=== PATIENT | male | born 1965 | race Two or more races ===

== ENCOUNTER 2019-02-23 14:51 | Emergency (ER) | payer SELFPAY ==
[~2019-02-23] VITALS: Ht 170.2 cm; Wt 63.5 kg
[2019-02-23] MEDS ORDERED: IV NS 0.9% 1,000 ML BAG IV ONE (15:30)
[2019-02-23 15:39] LABS: BASOPHILS % (AUTO) 1.8 % (0.0-2.0); EOSINOPHILS % (AUTO) 5.1 % (0.0-6.0); HEMATOCRIT 40 % (39-51); LYMPHOCYTES # (AUTO) 0.9 /CMM (0.8-4.8); LYMPHOCYTES % (AUTO) 33.1 % (20.0-44.0); MEAN CORPUSCULAR HGB CONC 33 g/dl (31.0-36.0); MEAN CORPUSCULAR VOLUME 80 fL (80-96); MONOCYTES # (AUTO) 0.4 /CMM (0.1-1.30); MONOCYTES % (AUTO) 14.5 % (2.0-12.0); NEUTROPHILS # (AUTO) 1.2 /CMM (1.8-8.9); NEUTROPHILS % (AUTO) 45.5 % (43.0-81.0); PLATELET COUNT (AUTO) 550 /CMM (150-450); RED BLOOD CELL COUNT(AUTO) 4.93 MIL/uL (4.5-6.0); WHITE BLOOD COUNT (AUTO) 2.6 K/uL (4.3-11.0)
--- NOTE | 2019-02-23 15:40 | NUR ---
patient presented to the ER c/o abd pain. On room air, ambulatory, breathing evenly and unlabored. Connected to the monitor and pulse ox. Kept comfortable, will continue to monitor accordingly.
--- NOTE | 2019-02-23 15:41 | NUR ---
urine collected and sent to lab.
[2019-02-23 15:50] LABS: CREATININE 0.8 mg/dL (0.6-1.3)
[2019-02-23 15:55] LABS: ALBUMIN 3.1 g/dL (3.4-5.0); BILIRUBIN,DIRECT 0.1 mg/dL (0.0-0.2); BILIRUBIN,TOTAL 0.4 mg/dL (0.2-1.0); TOTAL PROTEIN, SERUM 7.9 g/dL (6.4-8.2)
[2019-02-23] MEDS ORDERED: CT SWABBABLE VALVE TRANS SET 1 EA INFUS.SET MC ONE (15:59)
[2019-02-23 16:06] LABS: APPEARANCE,URINE Clear (CLEAR); BILIRUBIN,URINE Negative (NEGATIVE); BLOOD, URINE Negative Ery/uL (NEGATIVE); COLOR,URINE Yellow (YELLOW); KETONES,URINE Negative (NEGATIVE); LEUKOCYTE ESTERASE ,URINE Negative (NEGATIVE); NITRITE, URINE Negative (NEGATIVE); PROTEIN,URINE Negative (NEGATIVE); UGLUCOSE Negative (NEGATIVE); UROBILINOGEN,URINE 0.2 EU/dL (0.2)
--- NOTE | 2019-02-23 17:36 | NUR ---
Patient discharged to home in stable condition. Written and verbal after care instructions given. Patient verbalizes understanding of instruction.IV removed. Catheter intact and site benign. Pressure and 4x4 applied to site. No bleeding noted.
[2019-02-23 17:37] VITALS: BP 121/76
[2019-03-15] MEDS ORDERED: IPRA0.2S9 NEB (10:32)
[2019-03-15] MEDS ORDERED: methylPREDNISolone SOD SUCC IV (10:32)
[2019-03-15] MEDS ORDERED: ALBUT2 NEB (10:32)
[2019-03-15] MEDS ORDERED: PANT40TA2 PO (10:32)
[2019-03-20] MEDS ORDERED: PRED5TAB48 PO (16:12)
[2019-03-22] MEDS ORDERED: APIX5TAB PO (10:43)
== END 2019-02-23 17:39 | disposition home or self-care (01) ==
LOC: ER 14:53
DX: R10.84 Generalized abdominal pain (principal)
CPT/HCPCS: 36415; 71045; 74177; 80048; 80076; 81001; 83690; 85025; 85730; 96360; 99284; J7030; 81000-TC

== ENCOUNTER 2019-02-27 08:46 | Inpatient (IN) | payer MEDICAID ==
[~2019-02-27] VITALS: Ht 170.2 cm; Wt 63.0 kg
[2019-02-27 09:15] LABS: BASOPHILS % (AUTO) 1.6 % (0.0-2.0); EOSINOPHILS % (AUTO) 3.3 % (0.0-6.0); HEMATOCRIT 38 % (39-51); HEMOGLOBIN 12.6 g/dL (13.5-17.5); LYMPHOCYTES # (AUTO) 0.7 /CMM (0.8-4.8); LYMPHOCYTES % (AUTO) 25.1 % (20.0-44.0); MEAN CORPUSCULAR HGB CONC 33 g/dl (31.0-36.0); MEAN CORPUSCULAR VOLUME 80 fL (80-96); MONOCYTES # (AUTO) 0.6 /CMM (0.1-1.30); MONOCYTES % (AUTO) 20.5 % (2.0-12.0); NEUTROPHILS # (AUTO) 1.3 /CMM (1.8-8.9); NEUTROPHILS % (AUTO) 49.5 % (43.0-81.0); PLATELET COUNT (AUTO) 587 /CMM (150-450); RED BLOOD CELL COUNT(AUTO) 4.76 MIL/uL (4.5-6.0); WHITE BLOOD COUNT (AUTO) 2.7 K/uL (4.3-11.0)
[2019-02-27 09:24] LABS: CALCIUM, SERUM 8.8 mg/dL (8.5-10.1); CARBON DIOXIDE 32 mmol/L (21-32); CHLORIDE 94 mmol/L (98-107); CREATININE 0.9 mg/dL (0.6-1.3); GLUCOSE 90 mg/dL (74-106); POTASSIUM 3.6 mmol/L (3.5-5.1); SODIUM SERUM 132 mmol/L (136-145); UREA NITROGEN, BLOOD 7 mg/dL (7-18)
[2019-02-27] MEDS ORDERED: IV NS 0.9% 1,000 ML BAG IV ONE (09:30)
[2019-02-27 09:32] LABS: BAND % (MANUAL) 6 % (0.0-5.0); EOSINOPHILS % (MANUAL) 3 % (0-4); LYMPHOCYTES % (MANUAL) 31 % (16-48); MONOCYTES % (MANUAL) 16 % (0-11.0); NEUTROPHILS % (MANUAL) 44 (42-76)
[2019-02-27] MEDS ORDERED: IV NS 0.9% 250 ML IV ONE (09:58)
[2019-02-27] MEDS ORDERED: IOHEXOL-350 100 ML VIAL IV ONE (09:59)
[2019-02-27] MEDS ORDERED: CT SWABBABLE VALVE TRANS SET 1 EA INFUS.SET MC ONE (09:59)
[2019-02-27] MEDS ORDERED: HYDR-4384 PO (11:49)
[2019-02-27] MEDS ORDERED: LORAZEPAM INJ 2 MG/ML VIAL IV ONE (12:00)
[2019-02-27] MEDS ORDERED: LORAZEPAM INJ 2 MG/ML VIAL ONE (12:01)
[2019-02-27] MEDS ORDERED: HYDROCODONE/APAP 5/325MG 1 EACH TABLET PO PRN (13:30)
[2019-02-27] MEDS ORDERED: MAGNESIUM HYDROXIDE 30 ML UDC PO PRN (13:30)
[2019-02-27] MEDS ORDERED: ACETAMINOPHEN 325 MG TABLET PO PRN (13:30)
[2019-02-27] MEDS ORDERED: Z GUARD REMEDY 2 OZ OINT TP PRN (13:30)
[2019-02-27] MEDS ORDERED: ONDANSETRON HCL/PF 4 MG/2 ML VIAL IVP PRN (13:30)
[2019-02-27 14:30] VITALS: BP 97/69
[2019-02-27 16:00] VITALS: BP 109/74
[2019-02-27 20:00] VITALS: BP 96/66
[2019-02-27] MEDS: MAG HYDROX/AL HYDROX/SIMETH 30 ML UDC PO PRN (21:53)
[2019-02-28] VITALS: BP 102/70
[2019-02-28] MEDS: CHOLESTYRAMINE/ASPARTAME 4 G/PKT PACKET PO SCH ×4 (00:09→17:08)
[2019-02-28 05:56] VITALS: BP 93/71
[2019-02-28 07:23] LABS: BASOPHILS # (AUTO) 0.1 /CMM (0.0-0.2); BASOPHILS % (AUTO) 1.3 % (0.0-2.0); EOSINOPHILS % (AUTO) 2.2 % (0.0-6.0); HEMATOCRIT 37 % (39-51); HEMOGLOBIN 12.2 g/dL (13.5-17.5); LYMPHOCYTES # (AUTO) 0.7 /CMM (0.8-4.8); LYMPHOCYTES % (AUTO) 17.2 % (20.0-44.0); MEAN CORPUSCULAR HGB CONC 33 g/dl (31.0-36.0); MEAN CORPUSCULAR VOLUME 80 fL (80-96); MONOCYTES # (AUTO) 0.5 /CMM (0.1-1.30); NEUTROPHILS # (AUTO) 2.7 /CMM (1.8-8.9); NEUTROPHILS % (AUTO) 66.3 % (43.0-81.0); PLATELET COUNT (AUTO) 592 /CMM (150-450); RED BLOOD CELL COUNT(AUTO) 4.61 MIL/uL (4.5-6.0); WHITE BLOOD COUNT (AUTO) 4.1 K/uL (4.3-11.0)
[2019-02-28 07:26] LABS: CALCIUM, SERUM 8.7 mg/dL (8.5-10.1); CREATININE 0.7 mg/dL (0.6-1.3); PHOSPHORUS 2.2 mg/dL (2.5-4.9); POTASSIUM 3.7 mmol/L (3.5-5.1)
[2019-02-28 08:00] VITALS: BP 98/68
[2019-02-28] MEDS: PROCHLORPERAZINE MALEATE 10 MG TABLET PO PRN (11:00)
[2019-02-28] MEDS ORDERED: NEUTRA PHOS 1 POWD.PACKET NG ONE (11:30)
[2019-02-28 16:00] VITALS: BP 110/61
[2019-02-28 19:53] VITALS: BP 109/70
[2019-02-28] MEDS: ZOLPIDEM TARTRATE 5 MG TABLET PO PRN (20:24)
[2019-03-01 06:30] LABS: BASOPHILS # (AUTO) 0.1 /CMM (0.0-0.2); BASOPHILS % (AUTO) 1.2 % (0.0-2.0); EOSINOPHILS % (AUTO) 3.3 % (0.0-6.0); HEMATOCRIT 36 % (39-51); LYMPHOCYTES # (AUTO) 0.9 /CMM (0.8-4.8); LYMPHOCYTES % (AUTO) 15.6 % (20.0-44.0); MEAN CORPUSCULAR HGB CONC 34 g/dl (31.0-36.0); MEAN CORPUSCULAR VOLUME 80 fL (80-96); MONOCYTES # (AUTO) 0.6 /CMM (0.1-1.30); MONOCYTES % (AUTO) 10.8 % (2.0-12.0); NEUTROPHILS # (AUTO) 3.9 /CMM (1.8-8.9); NEUTROPHILS % (AUTO) 69.1 % (43.0-81.0); PLATELET COUNT (AUTO) 636 /CMM (150-450); RED BLOOD CELL COUNT(AUTO) 4.48 MIL/uL (4.5-6.0); WHITE BLOOD COUNT (AUTO) 5.6 K/uL (4.3-11.0)
[2019-03-01 06:42] LABS: CALCIUM, SERUM 8.5 mg/dL (8.5-10.1); CREATININE 0.8 mg/dL (0.6-1.3); POTASSIUM 3.7 mmol/L (3.5-5.1)
[2019-03-01 08:00] VITALS: BP 92/67
[2019-03-01] MEDS: CHOLESTYRAMINE/ASPARTAME 4 G/PKT PACKET PO SCH ×3 (08:11→17:00)
[2019-03-01] MEDS: PROCHLORPERAZINE MALEATE 10 MG TABLET PO PRN (14:56)
[2019-03-01 16:00] VITALS: BP 108/69
[2019-03-01] MEDS: MENTHOL/CETYLPYRD (CEPACOL) 1 LOZ LOZENGE PO PRN (17:53)
[2019-03-01 18:30] VITALS: BP 110/78
[2019-03-01] MEDS ORDERED: DEXAMETHASONE SOD PHOSPHATE 10 MG/ML VIAL IV ONE (19:30)
[2019-03-01] MEDS ORDERED: IPRATROPIUM NEB FS 0.5 MG/2.5 ML AMPUL.NEB NEB PRN (19:30)
[2019-03-01] MEDS ORDERED: ALBUTEROL FS 2.5 MG/0.5 ML VIAL.NEB NEB PRN (19:30)
[2019-03-02] MEDS: IV D5/ 0.9% NACL 1,000 ML IV PRN ×2 (01:34→14:46)
[2019-03-02 07:27] LABS: BASOPHILS % (AUTO) 0.1 % (0.0-2.0); EOSINOPHILS % (AUTO) 0.2 % (0.0-6.0); HEMATOCRIT 35 % (39-51); HEMOGLOBIN 11.5 g/dL (13.5-17.5); LYMPHOCYTES # (AUTO) 0.4 /CMM (0.8-4.8); LYMPHOCYTES % (AUTO) 5.9 % (20.0-44.0); MEAN CORPUSCULAR HGB CONC 33 g/dl (31.0-36.0); MEAN CORPUSCULAR VOLUME 80 fL (80-96); MONOCYTES # (AUTO) 0.1 /CMM (0.1-1.30); MONOCYTES % (AUTO) 1.4 % (2.0-12.0); NEUTROPHILS # (AUTO) 6.9 /CMM (1.8-8.9); NEUTROPHILS % (AUTO) 92.4 % (43.0-81.0); PLATELET COUNT (AUTO) 686 /CMM (150-450); RED BLOOD CELL COUNT(AUTO) 4.35 MIL/uL (4.5-6.0); WHITE BLOOD COUNT (AUTO) 7.4 K/uL (4.3-11.0)
[2019-03-02 07:40] LABS: CALCIUM, SERUM 8.6 mg/dL (8.5-10.1); CREATININE 0.8 mg/dL (0.6-1.3); POTASSIUM 4.2 mmol/L (3.5-5.1)
[2019-03-02 07:52] LABS: ALBUMIN 2.2 g/dL (3.4-5.0); BILIRUBIN,DIRECT 0.1 mg/dL (0.0-0.2); BILIRUBIN,TOTAL 0.2 mg/dL (0.2-1.0); TOTAL PROTEIN, SERUM 6.7 g/dL (6.4-8.2)
[2019-03-02 08:00] VITALS: BP 80/54
[2019-03-02 08:03] LABS: THYROID STIMULATING HORMONE 0.294 uIU/mL (0.358-3.74)
[2019-03-02 08:14] LABS: BAND % (MANUAL) 7 % (0.0-5.0); EOSINOPHILS % (MANUAL) 2 % (0-4); LYMPHOCYTES % (MANUAL) 5 % (16-48); NEUTROPHILS % (MANUAL) 86 (42-76)
[2019-03-02] MEDS: CHOLESTYRAMINE/ASPARTAME 4 G/PKT PACKET PO SCH ×3 (09:00→18:44)
[2019-03-02 10:00] VITALS: BP 90/60
[2019-03-02] MEDS ORDERED: FENTANYL PF 250MCG/5ML AMPUL IV ONE (10:00)
[2019-03-02] MEDS ORDERED: NALOXONE PREFILLED SYRINGE 2 MG/2 ML SYRINGE IV ONE (10:00)
[2019-03-02] MEDS ORDERED: MIDAZOLAM HCL 5MG/ML VIAL 25 MG/5 ML VIAL IV ONE (10:00)
[2019-03-02] MEDS: PROCHLORPERAZINE MALEATE 10 MG TABLET PO PRN (14:16)
[2019-03-02 15:28] VITALS: BP 119/78
[2019-03-02 16:00] VITALS: BP 119/78
[2019-03-02] MEDS: MAG HYDROX/AL HYDROX/SIMETH 30 ML UDC PO PRN (19:11)
[2019-03-02 20:00] VITALS: BP_SYST 103; BP_SYST 133; BP_DIAS 70; BP_DIAS 80
[2019-03-02] MEDS: MENTHOL/CETYLPYRD (CEPACOL) 1 LOZ LOZENGE PO PRN (20:33)
[2019-03-02] MEDS: ZOLPIDEM TARTRATE 5 MG TABLET PO PRN (21:37)
[2019-03-03] MEDS: IV D5/ 0.9% NACL 1,000 ML IV PRN (04:09)
[2019-03-03] MEDS: CHOLESTYRAMINE/ASPARTAME 4 G/PKT PACKET PO SCH ×3 (08:55→18:32)
[2019-03-03] MEDS ORDERED: MAGNESIUM CITRATE 296 ML BOTTLE PO ONE (17:30)
[2019-03-03] MEDS ORDERED: PEG 3350/NA SULF,BICARB,CL/KCL 4,000 ML BOTTLE PO ONE (17:30)
[2019-03-03] MEDS ORDERED: NA PHOS,M-B/NA PHOS,DI-BA 1 EA ENEMA RC PRN (17:30)
[2019-03-03] MEDS: PANTOPRAZOLE 40 MG VIAL IV SCH (18:33)
[2019-03-03 20:00] VITALS: BP 121/87
[2019-03-04] MEDS: ZOLPIDEM TARTRATE 5 MG TABLET PO PRN ×2 (00:44→22:01)
[2019-03-04] MEDS: IV D5/ 0.9% NACL 1,000 ML IV PRN (06:21)
[2019-03-04] MEDS: CHOLESTYRAMINE/ASPARTAME 4 G/PKT PACKET PO SCH ×3 (09:00→17:00)
[2019-03-04] MEDS: MAG HYDROX/AL HYDROX/SIMETH 30 ML UDC PO PRN (12:49)
[2019-03-04] MEDS: ENSURE ENLIVE CHOC 237 ML CAN PO SCH (16:00)
[2019-03-04] MEDS: PANTOPRAZOLE 40 MG VIAL IV SCH (18:06)
[2019-03-04 20:00] VITALS: BP 130/91
[2019-03-04] MEDS ORDERED: LIDOCAINE 1% INJ 50 ML MDV IJ ONE (20:00)
[2019-03-05] MEDS: MENTHOL/CETYLPYRD (CEPACOL) 1 LOZ LOZENGE PO PRN (03:00)
[2019-03-05 07:18] VITALS: BP 130/91
[2019-03-05 08:00] VITALS: BP 104/73
[2019-03-05] MEDS: CHOLESTYRAMINE/ASPARTAME 4 G/PKT PACKET PO SCH ×2 (08:38→11:50)
[2019-03-05] MEDS: ENSURE ENLIVE CHOC 237 ML CAN PO SCH (09:05)
[2019-03-20] MEDS ORDERED: PRED5TAB48 PO (16:12)
[2019-03-22] MEDS ORDERED: APIX5TAB PO (10:43)
== END 2019-03-05 16:26 | disposition home or self-care (01) | DRG 691 ==
LOC: ER 08:49 → TELE 13:13 → MED 02-28 08:33
PROVIDERS: ADMIT Family Medicine; ATTEND Nurse Practitioner Acute Care
PROC: 07DC3ZX Extraction of Pelvis Lymphatic, Percutaneous Approach, Diagnostic (ICD-10-PCS; principal; 2019-03-02)
DX: C85.18 Unspecified B-cell lymphoma, lymph nodes of multiple sites (principal); J96.01 Acute respiratory failure with hypoxia; E22.2 Syndrome of inappropriate secretion of antidiuretic hormone; D68.9 Coagulation defect, unspecified; D70.4 Cyclic neutropenia; R13.10 Dysphagia, unspecified; C85.10 Unspecified B-cell lymphoma, unspecified site; D63.0 Anemia in neoplastic disease; K20.9 Esophagitis, unspecified; E86.1 Hypovolemia; R63.0 Anorexia; Z68.21 Body mass index [BMI] 21.0-21.9, adult; E05.90 Thyrotoxicosis, unspecified without thyrotoxic crisis or storm
CPT/HCPCS: 36415; 76942-TC; 77012-TC; 80048-TC; 80061-TC; 80076-TC; 82728-TC; 83540-TC; 83615-TC; 83735-TC; 84100-TC; 84439-TC; 84443-TC; 84484-TC; 85025-TC; 85610-TC; 85730-TC; 86706; 86803; 87081-TC; 87340; 87806; 88305-TC; 88342; 92526; 92611-TC; C9113; G0378; J1100; J2060; J2250; J2310; J2405; J3010; J3490; J7030; J7042; J7050; Q0164; Q9967

== ENCOUNTER 2019-03-08 15:38 | Inpatient (IN) | payer MEDICAID ==
[~2019-03-08] VITALS: Ht 170.2 cm; Wt 61.7 kg
[~2019-03-08 15:38] MED LIST: HYDR-4384 PO
--- NOTE | 2019-03-08 15:40 | NUR ---
BIB FRIEND FROM HOME FOR SOB X 2DAYS "IT'S LIKE I HAD TO CATCH MY BREATH". HX OF LUNG CA. TO ER BED 5, HOOKED TO MONITOR, CHANGED TO GOWN, PROVIDED W WARM BLANKET, DR BRODERICK AT BEDSIDE
[2019-03-08 15:58] LABS: BASOPHILS # (AUTO) 0.1 /CMM (0.0-0.2); BASOPHILS % (AUTO) 1.4 % (0.0-2.0); EOSINOPHILS % (AUTO) 5.4 % (0.0-6.0); HEMATOCRIT 38 % (39-51); HEMOGLOBIN 12.5 g/dL (13.5-17.5); LYMPHOCYTES % (AUTO) 16.2 % (20.0-44.0); MEAN CORPUSCULAR HGB CONC 33 g/dl (31.0-36.0); MEAN CORPUSCULAR VOLUME 81 fL (80-96); MONOCYTES # (AUTO) 0.4 /CMM (0.1-1.30); MONOCYTES % (AUTO) 6.5 % (2.0-12.0); NEUTROPHILS # (AUTO) 4.5 /CMM (1.8-8.9); NEUTROPHILS % (AUTO) 70.5 % (43.0-81.0); PLATELET COUNT (AUTO) 670 /CMM (150-450); RED BLOOD CELL COUNT(AUTO) 4.65 MIL/uL (4.5-6.0); WHITE BLOOD COUNT (AUTO) 6.4 K/uL (4.3-11.0)
[2019-03-08 16:10] LABS: CALCIUM, SERUM 8.8 mg/dL (8.5-10.1); CARBON DIOXIDE 33 mmol/L (21-32); CHLORIDE 101 mmol/L (98-107); CREATININE 0.9 mg/dL (0.6-1.3); GLUCOSE 158 mg/dL (74-106); POTASSIUM 3.6 mmol/L (3.5-5.1); SODIUM SERUM 140 mmol/L (136-145); UREA NITROGEN, BLOOD 7 mg/dL (7-18)
[2019-03-08 16:20] LABS: ALANINE AMINOTRANSFERASE 55 U/L (12-78); ALKALINE PHOSPHATASE 145 U/L (46-116); BILIRUBIN,DIRECT 0.1 mg/dL (0.0-0.2); BILIRUBIN,TOTAL 0.2 mg/dL (0.2-1.0); TOTAL PROTEIN, SERUM 7.1 g/dL (6.4-8.2)
[2019-03-08 16:51] LABS: ASPARTATE AMINOTRANSFERASE 65 U/L (15-37); B-TYPE NATRIURETIC PEPTIDE 78 PG/ML (0-125)
[2019-03-08 17:24] LABS: ABG BASE EXCESS 4.4 mmol/L; ABG OXYGEN SATURATION 95.2 % (92.0-98.5); ABG PCO2 37.6 mmHg (35.0-45.0); ABG PH 7.488 (7.350-7.450); AaDO2 30.7 mmHg; COHb 0.1 % (0.5-1.5); MetHb 0.5 % (0.0-1.5); O2Hb 94.6 % (94.0-97.0); SITE, ABG Right Radial; VENT MODE, BG RA
[2019-03-08] MEDS ORDERED: IV NS 0.9% 1,000 ML BAG IV ONE (18:00)
[2019-03-08] MEDS ORDERED: ALBUTEROL FS 2.5 MG/3 ML VIAL.NEB NEB ONE (18:00)
[2019-03-08] MEDS ORDERED: IPRATROPIUM NEB FS 0.5 MG/2.5 ML AMPUL.NEB NEB ONE (18:00)
[2019-03-08] MEDS ORDERED: IPRATROPIUM NEB FS 0.5 MG/2.5 ML AMPUL.NEB ONE (18:05)
[2019-03-08] MEDS ORDERED: ALBUTEROL FS 2.5 MG/3 ML VIAL.NEB ONE (18:05)
--- NOTE | 2019-03-08 18:13 | NUR ---
ONGOING BREATHING TREATMENT
--- NOTE | 2019-03-08 18:22 | NUR ---
CALLED [employer]. CUSTOMS AND BORDER PROTECTION INSPECTOR WAS PAGED.
--- NOTE | 2019-03-08 19:01 | NUR ---
LEAD SYSTEMS ARCHITECT CLARICE AUSTIN AT BEDSIDE
[2019-03-08] MEDS ORDERED: IV NS 0.9% 1,000 ML IV PRN (19:21)
[2019-03-08] MEDS ORDERED: HYDROCODONE/APAP 5/325MG 1 EACH TABLET PO PRN (19:30)
[2019-03-08] MEDS ORDERED: ACETAMINOPHEN 325 MG TABLET PO PRN (19:30)
[2019-03-08] MEDS ORDERED: ONDANSETRON HCL/PF 4 MG/2 ML VIAL IVP PRN (19:30)
[2019-03-08] MEDS ORDERED: HYDROCODONE/APAP 10/325MG 1 EA TABLET PO PRN (19:30)
[2019-03-08] MEDS ORDERED: MAGNESIUM HYDROXIDE 30 ML UDC PO PRN (19:30)
[2019-03-08] MEDS ORDERED: MAG HYDROX/AL HYDROX/SIMETH 30 ML UDC PO PRN (19:30)
--- NOTE | 2019-03-08 19:34 | NUR ---
CALLED [facility]SE [facility] FOR MS BED
--- NOTE | 2019-03-08 19:54 | NUR ---
MS BED GIVEN 306-2
--- NOTE | 2019-03-08 20:10 | NUR ---
REPORT GIVEN TO STEPAN MAXWELL OF MED-SURG UNIT
--- NOTE | 2019-03-08 20:30 | NUR ---
PT WHEELED OUT VIA [facility] BY AN EMT. TRANSFERRED TO MED-SURG UNIT
[2019-03-08 20:35] VITALS: BP 111/71
--- NOTE | 2019-03-08 20:35 | NUR ---
RN MS ADMITTING OPENING NOTES RECEIVED PATIENT FROM ER VIA GURNEY SAFELY TRANSFERRED TO BED, AWAKE ALERT AND ORIENTED X4, NOTED SOB ON EXERTION, PATIENT IS AMBULATORY WITH STAND BY ASSIST, STEADY BUT STATES " HAS BEEN WEAK RECENTLY". SP02 RA 99%, NO RESPIRATORY DISTRESS PRESENT, IV SITE TO RIGHT AC #20 G INTACT AND PATENT, NO REDNESS, NO INFILTRATION PRESENT, BODY ASSESSMENT DONE SKIN IS CLEAR AND INTACT NO PRESSURE ULCERS, BELONGINGS LIST DONE, ORIENTED TO STAFF, ROOM AND CALL LIGHT AND KEPT WITHIN REACH, SAFETY PRECAUTIONS IN PLACE, LOW BED AND LOCKED, FLUIDS AND TOILETING OFFERED, ALL NEEDS WERE ATTENDED AT THIS TIME, WILL FOLLOW ORDERS PER CLARICE. PATIENT AWARE OF PLAN OF CARE, WILL CONTINUE TO ADDRESS NEEDS AND MONITOR THROUGHOUT SHIFT, PATIENT STATES HE HAS PAIN 2/10 RIGHT HIP , PAIN MEDICATION OFFERED BUT DOES WANT ANY PAIN MEDICATION AT THIS TIME, "TOLERABLE", NO FACIAL GRIMACING PRESENT, PATIENT REPOSITIONED. WILL CONTINUE TO ASSESS.
[2019-03-08] MEDS: TEMAZEPAM 15 MG CAPSULE PO PRN (23:42)
--- NOTE | 2019-03-08 23:42 | NUR ---
RN MS NOTES PATIENT REQUESTED FOR SLEEP AIDE, RESTORIL PRN OFFERED ORDERED AND GIVEN PATIENT ALSO REQUEST FOR 02 WITH HUMIDIFIER, PLACED PER REQUEST, WILL CONTINUE TO MONITOR FOR EFFECTIVENESS.
[2019-03-09 06:31] LABS: BASOPHILS # (AUTO) 0.1 /CMM (0.0-0.2); BASOPHILS % (AUTO) 1.4 % (0.0-2.0); EOSINOPHILS % (AUTO) 6.9 % (0.0-6.0); HEMATOCRIT 33 % (39-51); HEMOGLOBIN 10.8 g/dL (13.5-17.5); LYMPHOCYTES % (AUTO) 21.8 % (20.0-44.0); MEAN CORPUSCULAR HGB CONC 33 g/dl (31.0-36.0); MEAN CORPUSCULAR VOLUME 80 fL (80-96); MONOCYTES # (AUTO) 0.4 /CMM (0.1-1.30); NEUTROPHILS # (AUTO) 2.9 /CMM (1.8-8.9); NEUTROPHILS % (AUTO) 60.9 % (43.0-81.0); PLATELET COUNT (AUTO) 632 /CMM (150-450); WHITE BLOOD COUNT (AUTO) 4.8 K/uL (4.3-11.0)
--- NOTE | 2019-03-09 06:37 | NUR ---
RN MS CLOSING NOTES PATIENT IN BED, AWAKE ALERT AND ORIENTED X4, NOTED SOB ON EXERTION, PATIENT IS AMBULATORY WITH STAND BY ASSIST, ON 2 L VIA NC WHILE IN BED NO RESPIRATORY DISTRESS PRESENT, IV SITE TO RIGHT AC #20 G INTACT AND PATENT, NO REDNESS, NO INFILTRATION PRESENT,IVF RUNNING ORDERED, SKIN IS CLEAR AND INTACT NO PRESSURE ULCERS,CALL LIGHT KEPT WITHIN REACH, SAFETY PRECAUTIONS IN PLACE, LOW BED AND LOCKED, FLUIDS AND TOILETING OFFERED, ALL NEEDS WERE ATTENDED AT THIS TIME, REMAINS COMFORTABLE NO FURTHER CHANGE SINCE ADMISSION , WILL CONTINUE TO MONITOR AND ENDORSE TO NEXT SHIFT.
[2019-03-09 06:55] LABS: CALCIUM, SERUM 8.6 mg/dL (8.5-10.1); CREATININE 0.7 mg/dL (0.6-1.3); MAGNESIUM 2.2 mg/dL (1.8-2.4); PHOSPHORUS 3.6 mg/dL (2.5-4.9); POTASSIUM 4.2 mmol/L (3.5-5.1)
[2019-03-09] MEDS: PANTOPRAZOLE 40 MG TABLET.DR PO SCH (07:44)
[2019-03-09 08:00] VITALS: BP 99/67
--- NOTE | 2019-03-09 08:06 | NUR ---
MS RN NOTES PT RELAXED, AWAKE, ALERT AND ORIENTED X4. PT RESTING IN BED, TIRED WITH AMBULATORY ASSIST AND URINAL AT THE BEDSIDE. ON HUMIDIFIED OXYGEN VIA NC AT 2L . PT NOT EXPERIENCING ANY SIGNS OF SOB, OR ACUTE DISTRESS. SKIN IS INTACT. PT COMPLIANT, BED LOCKED AND LOWERED. BED ALARM ON. CALL LIGHT WITHIN REACH. WILL CONTINUE TO MONITOR.
[2019-03-09] MEDS: ENSURE ENLIVE CHOC 237 ML CAN PO SCH ×2 (08:57→17:00)
--- NOTE | 2019-03-09 12:40 | NUR ---
MS RN NOTES PT EXPERIENCING LABORED UNEVEN BREATHING. SABRINA RN AND JOSELYN RN CONTACTED DR. BERUMEN FOR BREATHING TX. DR. BERUMEN PROVIDED ORDERS FOR DUO NEB. RT AND PHARMACY NOTIFIED AND MADE AWARE. WILL CONTINUE TO MONITOR.
[2019-03-09] MEDS: ALBUTEROL FS 2.5 MG/0.5 ML VIAL.NEB NEB SCH ×4 (12:50→22:32)
[2019-03-09] MEDS: IPRATROPIUM NEB FS 0.5 MG/2.5 ML AMPUL.NEB NEB SCH ×4 (12:50→22:32)
[2019-03-09 16:00] VITALS: BP 107/76
[2019-03-09 16:53] LABS: ABG BASE EXCESS 3.7 mmol/L; ABG OXYGEN SATURATION 98.8 % (92.0-98.5); ABG PCO2 39.8 mmHg (35.0-45.0); ABG PH 7.461 (7.350-7.450); ABG PO2 148.1 mmHg (75.0-100.0); AaDO2 40.7 mmHg; COHb 0.7 % (0.5-1.5); MetHb 0.5 % (0.0-1.5); O2Hb 97.6 % (94.0-97.0); SITE, ABG Right Radial; VENT MODE, BG nasal cannula
--- NOTE | 2019-03-09 19:02 | NUR ---
MS RN CLOSING NOTES PT IN BED RESTING. PT HAS COMPLAINED OF UNEVEN, LABORED BREATHING INTERMITTENTLY THROUGHOUT THE DAY. PT WAS ON OXYGEN, NC AT 2L. UNTIL RECENT ABG LEVELS DRAWN. PT REDUCED FROM NC AT 2L TO ROOM AIR, SATURATING 100%. PT HAS NOT COMPLAINED OF SOB OR SHORTNESS OF BREATH SINCE. PT AWAKE, ALERT AND ORIENTED X 4. PT HAS URINAL AT BEDSIDE. MEDICATIONS GIVEN. ALL NEEDS MET. BED LOCKED, LOWERED, AND CALL LIGHT WITHIN REACH. ENDORSED CARE TO PM SHIFT.
--- NOTE | 2019-03-09 19:10 | NUR ---
MS RN OPENING NOTES Patient received sitting up in bed, eating. Alert, oriented x 4. Breathing even and unlabored. Not in any distress, on room air. No complaints at this time. Safety measures in place, call light within reach. Bed in low, locked position. Patient stable as endorsed by the AM RN. Will continue to monitor accordingly
[2019-03-09 20:00] VITALS: BP 123/82
--- NOTE | 2019-03-09 20:08 | NUR ---
RN NOTES Asked the patient to be hooked back to the IV fluids. Patient requested to leave it off. Patient is eating and drinking
[2019-03-09 20:27] VITALS: BP 123/82
--- NOTE | 2019-03-09 22:35 | NUR ---
RN NOTES Patient c/o shortness of breath. O2 saturation 97-99%. RT informed for breathing treatment
[2019-03-09] MEDS: TEMAZEPAM 15 MG CAPSULE PO PRN (23:03)
[2019-03-10] MEDS: ALBUTEROL FS 2.5 MG/0.5 ML VIAL.NEB NEB SCH ×4 (02:37→14:50)
[2019-03-10] MEDS: IPRATROPIUM NEB FS 0.5 MG/2.5 ML AMPUL.NEB NEB SCH ×4 (02:37→14:50)
--- NOTE | 2019-03-10 03:15 | NUR ---
RN NOTES Patient awake. Asked if he wants his breathing treatment, patient said he's fine for now
[2019-03-10 06:35] LABS: BASOPHILS % (AUTO) 1.9 % (0.0-2.0); EOSINOPHILS % (AUTO) 8.6 % (0.0-6.0); HEMATOCRIT 36 % (39-51); HEMOGLOBIN 11.6 g/dL (13.5-17.5); MEAN CORPUSCULAR HGB CONC 33 g/dl (31.0-36.0); MEAN CORPUSCULAR VOLUME 81 fL (80-96); MONOCYTES % (AUTO) 10.6 % (2.0-12.0); NEUTROPHILS % (AUTO) 52.9 % (43.0-81.0); PLATELET COUNT (AUTO) 625 /CMM (150-450); RED BLOOD CELL COUNT(AUTO) 4.38 MIL/uL (4.5-6.0); WHITE BLOOD COUNT (AUTO) 4.2 K/uL (4.3-11.0)
[2019-03-10 06:36] LABS: BASOPHILS # (AUTO) 0.1 /CMM (0.0-0.2); LYMPHOCYTES # (AUTO) 1.1 /CMM (0.8-4.8); MONOCYTES # (AUTO) 0.4 /CMM (0.1-1.30); NEUTROPHILS # (AUTO) 2.2 /CMM (1.8-8.9)
[2019-03-10 06:47] LABS: CALCIUM, SERUM 8.9 mg/dL (8.5-10.1); CREATININE 0.9 mg/dL (0.6-1.3); MAGNESIUM 2.1 mg/dL (1.8-2.4); PHOSPHORUS 4.2 mg/dL (2.5-4.9); POTASSIUM 4.2 mmol/L (3.5-5.1)
--- NOTE | 2019-03-10 07:15 | NUR ---
RN MS CLOSING NOTES PATIENT IN BED, AWAKE ALERT AND ORIENTED X4. BREATHING EVEN AND UNLABORED. NOT IN ANY DISTRESS. IV SITE ON RIGHT AC #20 G INTACT AND PATENT, NO REDNESS, NO INFILTRATION PRESENT. PATIENT STILL PREFERS TO BE UNHOOKED FROM THE IVF. CALL LIGHT KEPT WITHIN REACH, SAFETY PRECAUTIONS IN PLACE, LOW BED AND LOCKED. ALL NEEDS WERE ATTENDED AT THIS TIME. ENDORSED DANUTA TO AM RN
--- NOTE | 2019-03-10 07:17 | NUR ---
MS RN OPENING NOTE RECEIVED PT IN BED, ALERT AND ORIENTED X4. DENIES CHEST PAIN, SOB, N/V. PT STATES HE FEELS "SHORT OF BREATH". RT JUST COMPLETED SCHEDULED BREATHING TX ORDERED, VS OBTAINED AND ARE WNL, LUNG SOUNDS CLEAR BILATERALLY. INSTRUCTED PT TO ELEVATE HOB, PT STATED HE WANTS TO LAY FLAT AT THIS TIME. NO ACUTE DISTRESS NOTED AT THIS TIME. RIGHT AC #20G IV IS SALINE LOCKED WITHOUT REDNESS OR SWELLING. ALL NEEDS ATTENDED TO. BED IS LOCKED AND IN LOWEST POSITION, SIDE RAILS UP X2, CALL LIGHT AND POSSESSIONS WITHIN REACH.
[2019-03-10] MEDS: PANTOPRAZOLE 40 MG TABLET.DR PO SCH (07:30)
[2019-03-10] MEDS: ENSURE ENLIVE CHOC 237 ML CAN PO SCH (07:43)
[2019-03-10] MEDS ORDERED: ALBU8.5H8 INH (07:44)
[2019-03-10 08:00] VITALS: BP 101/70
--- NOTE | 2019-03-10 11:08 | NUR ---
Social service consult requested by ARLEN Griffith regarding pt. wanting to get a TAP card. Pt. is a 53 year old male who was admitted to [facility] for generalized weakness on 03/08/19. LINWOOD met with pt. bedside. Pt. is alert and oriented x 4. Pt. was lying in bed with is arm covering half of his face. Pt. appeared a disheveled. Pt. was cooperative with SW during the assessment. Pt. states he resides with his mother at [address] [place] [address] in [facility]. Currently, pt's mother is hospitalized as well at [facility]. Pt. has no source of income and is supported by his mother's social security income. Pt. was recently diagnosed with Lymphoma. SW attempted to talk to pt. about his new diagnosis but pt. declined. Pt. declined any drug or alcohol use at this time. Pt. also declined any psychiatric diagnosis at this time. LINWOOD gave pt. address and clinic information for [facility] located at [address] [place] [address] in [facility] . Hours Friday through Friday 8AM to 10:30PM. Pt. will require at TAP card at time of discharge. LINWOOD updated ARLEN Griffith with the aforementioned information.
[2019-03-10 16:00] VITALS: BP_SYST 101; BP_SYST 103; BP_DIAS 70; BP_DIAS 72
--- NOTE | 2019-03-10 16:02 | NUR ---
MS RN CLOSING NOTE PT DISCHARGED HOME VIA PRIVATE CAR, ACCOMPANIED BY CO WORKER. PT IS A/O X4, DENIES CHEST PAIN, SOB, N/V AT THIS TIME. BREATHING IS EVEN AND UNLABORED ON ROOM AIR. RIGHT AC PERIPHERAL IV REMOVED WITH CATHETER TIP INTACT. DISCHARGE PAPERWORK AND EDUCATION PROVIDED PER PROTOCOL. PT PROVIDED WITH CLEAN CLOTHING FROM ASSOCIATE MARKETING MANAGER PRIOR TO DISCHARGE. REVIEWED DOCTOR RECOMMENDATION TO FOLLOW UP WITH ONCOLOGY AND GI WITHIN 1 WEEK, PT PROVIDED WITH [employer] RESOURCES, ADDRESS, AND CONTACT INFORMATION WELL. DISCUSSED AND ENCOURAGED PT TO FOLLOW UP WITH [employer] PER DOCTOR RECOMMENDATIONS. PT INFORMED TO CALL 911 OR RETURN TO THE NEAREST ER FOR CHEST PAIN, SOB, TEMPERATURE THAT DOES NOT GO DOWN WITH TYLENOL ADMINISTRATION, UNILATERAL CALF SWELLING, MELENA, ABDOMINAL DISTENTION, OR REOCCURRENCE OF CHIEF COMPLAINT. PT VERBALIZED AGREEMENT AND UNDERSTANDING. THE NURSE CORE FILER ACCOMPANIED THE PT AND CO WORKER TO THE MAIN LOBBY VIA WHEELCHAIR WITHOUT INCIDENT. Addendum: 03/10/19 at 1606 by FLOYD ESTES RN MS CITY MAINTENANCE MANAGER NOTE
[2019-03-15] MEDS ORDERED: ALBUT2 NEB (10:32)
[2019-03-15] MEDS ORDERED: PANT40TA2 PO (10:32)
[2019-03-15] MEDS ORDERED: methylPREDNISolone SOD SUCC IV (10:32)
[2019-03-15] MEDS ORDERED: IPRA0.2S9 NEB (10:32)
[2019-03-20] MEDS ORDERED: PRED5TAB48 PO (16:12)
[2019-03-22] MEDS ORDERED: APIX5TAB PO (10:43)
== END 2019-03-10 16:00 | disposition home or self-care (01) | DRG 756 ==
LOC: ER 15:40 → MED 20:02
PROVIDERS: ADMIT Nurse Practitioner Acute Care
DX: F41.9 Anxiety disorder, unspecified (principal); C78.01 Secondary malignant neoplasm of right lung; C85.13 Unspecified B-cell lymphoma, intra-abdominal lymph nodes; E44.0 Moderate protein-calorie malnutrition; C80.1 Malignant (primary) neoplasm, unspecified; E88.09 Other disorders of plasma-protein metabolism, not elsewhere classified; E05.90 Thyrotoxicosis, unspecified without thyrotoxic crisis or storm; F12.90 Cannabis use, unspecified, uncomplicated; D63.8 Anemia in other chronic diseases classified elsewhere; R73.9 Hyperglycemia, unspecified; Z68.21 Body mass index [BMI] 21.0-21.9, adult; R62.7 Adult failure to thrive; R53.1 Weakness
CPT/HCPCS: 36415; 36600; 71045-TC; 80048-TC; 80076-TC; 80305; 82803-TC; 83735-TC; 83880; 84100-TC; 84484-TC; 85025-TC; 87081-TC; 97116-TC; 97530-TC; G0378; J7030

== ENCOUNTER 2019-03-10 18:16 | Inpatient (IN) | payer MEDICAID ==
[~2019-03-10] VITALS: Ht 170.2 cm; Wt 60.3 kg
[~2019-03-10 18:16] MED LIST changes: +ALBU8.5H8 INH
[2019-03-10] MEDS ORDERED: methylPREDNISolone SOD SUCC 40 MG/ML VIAL ONE (18:38)
[2019-03-10 18:45] LABS: BASOPHILS # (AUTO) 0.1 /CMM (0.0-0.2); BASOPHILS % (AUTO) 2.6 % (0.0-2.0); EOSINOPHILS % (AUTO) 8.2 % (0.0-6.0); HEMATOCRIT 38 % (39-51); HEMOGLOBIN 12.4 g/dL (13.5-17.5); LYMPHOCYTES # (AUTO) 1.1 /CMM (0.8-4.8); LYMPHOCYTES % (AUTO) 29.8 % (20.0-44.0); MEAN CORPUSCULAR HGB CONC 33 g/dl (31.0-36.0); MEAN CORPUSCULAR VOLUME 81 fL (80-96); MONOCYTES # (AUTO) 0.4 /CMM (0.1-1.30); MONOCYTES % (AUTO) 11.5 % (2.0-12.0); NEUTROPHILS # (AUTO) 1.8 /CMM (1.8-8.9); NEUTROPHILS % (AUTO) 47.9 % (43.0-81.0); PLATELET COUNT (AUTO) 654 /CMM (150-450); RED BLOOD CELL COUNT(AUTO) 4.66 MIL/uL (4.5-6.0); WHITE BLOOD COUNT (AUTO) 3.8 K/uL (4.3-11.0)
--- NOTE | 2019-03-10 18:51 | NUR ---
patient BIB RA from home, c/o SOB, patient was just DC in the hospital for same reason, on room air, breathing evenly and unlabored. 02 sat 96%. denies any pain at this time, connected to the monitor and pulse ox. Kept comfortable, will continue to monitor accordingly.
--- NOTE | 2019-03-10 18:57 | NUR ---
TURNED MOVE SHEETS
[2019-03-10] MEDS ORDERED: IPRATROPIUM NEB FS 0.5 MG/2.5 ML AMPUL.NEB NEB ONE (19:00)
[2019-03-10] MEDS ORDERED: methylPREDNISolone SOD SUCC 125 MG/2ML VIAL IV ONE (19:00)
[2019-03-10] MEDS ORDERED: ALBUTEROL FS 2.5 MG/3 ML VIAL.NEB NEB ONE (19:00)
[2019-03-10 19:02] LABS: ABG BASE EXCESS 1.7 mmol/L; ABG PCO2 31.8 mmHg (35.0-45.0); ABG PH 7.498 (7.350-7.450); ABG PO2 87.9 mmHg (75.0-100.0); AaDO2 23.8 mmHg; SITE, ABG Right Radial; VENT MODE, BG RA
[2019-03-10 19:02] LABS: CALCIUM, SERUM 8.8 mg/dL (8.5-10.1); CARBON DIOXIDE 30 mmol/L (21-32); CHLORIDE 101 mmol/L (98-107); CREATININE 0.9 mg/dL (0.6-1.3); GLUCOSE 93 mg/dL (74-106); POTASSIUM 4.1 mmol/L (3.5-5.1); SODIUM SERUM 136 mmol/L (136-145); UREA NITROGEN, BLOOD 7 mg/dL (7-18)
[2019-03-10] MEDS ORDERED: Magnesium 1GM/D5W 100ML PREMIX 200 ML IV ONE (19:02)
[2019-03-10] MEDS ORDERED: Magnesium 1GM/D5W 100ML PREMIX 100 ML IV ONE (19:08)
[2019-03-10 19:14] LABS: ALANINE AMINOTRANSFERASE 40 U/L (12-78); ALBUMIN 2.9 g/dL (3.4-5.0); ALKALINE PHOSPHATASE 148 U/L (46-116); ASPARTATE AMINOTRANSFERASE 32 U/L (15-37); B-TYPE NATRIURETIC PEPTIDE 58 PG/ML (0-125); BILIRUBIN,DIRECT 0.1 mg/dL (0.0-0.2); BILIRUBIN,TOTAL 0.5 mg/dL (0.2-1.0)
--- NOTE | 2019-03-10 19:15 | NUR ---
RECEIVED REPORT FROM KATIE MAXWELL FOR DANUTA. PT RESTING COMFORTABLY IN BED. VITAL SIGNS STABLE. NO ACUTE DISTRESS NOTED AT THIS TIME. WILL CONTINUE TO MONITOR
--- NOTE | 2019-03-10 19:38 | NUR ---
CALLED [facility], TAYLOR HERNANDEZ WAS PAGED
[2019-03-10] MEDS ORDERED: IPRATROPIUM NEB FS 0.5 MG/2.5 ML AMPUL.NEB ONE (19:39)
[2019-03-10] MEDS ORDERED: ALBUTEROL FS 2.5 MG/3 ML VIAL.NEB ONE (19:39)
--- NOTE | 2019-03-10 19:45 | NUR ---
RT AT BEDSIDE
--- NOTE | 2019-03-10 20:28 | NUR ---
CALLED [facility] FOR HUY BED
--- NOTE | 2019-03-10 20:41 | NUR ---
BED 112-1
[2019-03-10] MEDS ORDERED: Z GUARD REMEDY 2 OZ OINT TP PRN (21:00)
[2019-03-10] MEDS ORDERED: ACETAMINOPHEN 325 MG TABLET PO PRN (21:00)
[2019-03-10] MEDS ORDERED: MAG HYDROX/AL HYDROX/SIMETH 30 ML UDC PO PRN (21:00)
[2019-03-10] MEDS ORDERED: MAGNESIUM HYDROXIDE 30 ML UDC PO PRN (21:00)
[2019-03-10] MEDS ORDERED: ONDANSETRON HCL/PF 4 MG/2 ML VIAL IVP PRN (21:00)
[2019-03-10] MEDS ORDERED: HYDROCODONE/APAP 5/325MG 1 EACH TABLET PO PRN (21:00)
--- NOTE | 2019-03-10 21:21 | NUR ---
GAVE REPORT TO DENTON MAXWELL FOR DANUTA
[2019-03-10 21:25] VITALS: BP 117/76
--- NOTE | 2019-03-10 21:25 | NUR ---
ADMISSION NOTES: RECEIVED REPORT FROM CHANCE CRENSHAW RN. PT WAS BROUGHT TO THE UNIT VIA GURNEY. PT ABLE TO AMBULATE WITH ASSISTANCE. PT A/O X3 ON 4L OXYGEN VIA NC RESPIRATION EVEN AND UNLABORED, PT DENIES ANY SOB AT THIS TIME, DENIES ANY CHEST PAIN OR DISCOMFORT. IV ACCESS PATENT AND FLUSHING WELL, ON HL. ADMISSION INTERVIEW COMPLETED. SKIN ASSESSMENT PERFORMED, NO SKIN ISSUES NOTED. OFFERED URINAL. ON TELE MONITORING SINUS TACH HR 103. ORIENTED PT TO UNIT POLICY AND HOURLY ROUNDING. KEPT COMFORTABLE. VS TAKEN AND RECORDED. SAFETY PRECAUTIONS FOR FALL INITIATED, CALL LIGHT IN REACH, WILL CONTINUE MONITORING PT.
--- NOTE | 2019-03-10 21:32 | NUR ---
PT TRANSFERRED PER ACLS PROTOCOL
[2019-03-10] MEDS: IPRATROPIUM NEB FS 0.5 MG/2.5 ML AMPUL.NEB NEB SCH (23:31)
[2019-03-10] MEDS: ALBUTEROL FS 2.5 MG/3 ML VIAL.NEB NEB SCH (23:31)
[2019-03-11] VITALS: BP 94/66
--- NOTE | 2019-03-11 | NUR ---
RN NOTES: RT TITRATED PT'S OXYGEN, NOW 2L VIA NC, SPO2 97%.
--- NOTE | 2019-03-11 03:23 | NUR ---
rn notes: pt refused breathing treatment, education provided to pt regarding importance of med compliance
[2019-03-11] MEDS: ALBUTEROL FS 2.5 MG/3 ML VIAL.NEB NEB SCH ×6 (03:25→23:01)
[2019-03-11] MEDS: IPRATROPIUM NEB FS 0.5 MG/2.5 ML AMPUL.NEB NEB SCH ×6 (03:25→23:01)
[2019-03-11 04:00] VITALS: BP 90/62
--- NOTE | 2019-03-11 06:35 | NUR ---
RN CLOSING NOTES: PT IN BED, REMAINS ON 2L OXYGEN VIA NC, RESPIRATION EVEN AND UNLABORED, DENIES ANY CHEST PAIN OR SOB AT THIS TIME. IV ACCESS REMAINS PATENT AND FLUSHING WELL, ON HL. REMAINS ON TELE MONITORING, SINUS RHYTHM HR 97. VS REMAINS STABLE, NEEDS ATTENDED. SAFETY PRECAUTIONS FOR FALL REMAINS ENGAGED, CALL LIGHT IN REACH, WILL ENDORSE TO DAY RN FOR CONTINUITY OF CARE.
[2019-03-11 06:42] LABS: ALBUMIN 2.7 g/dL (3.4-5.0); BILIRUBIN,TOTAL 0.3 mg/dL (0.2-1.0); CALCIUM, SERUM 9.2 mg/dL (8.5-10.1); CREATININE 1.1 mg/dL (0.6-1.3); MAGNESIUM 2.3 mg/dL (1.8-2.4); PHOSPHORUS 4.1 mg/dL (2.5-4.9); POTASSIUM 4.5 mmol/L (3.5-5.1); TOTAL PROTEIN, SERUM 7.1 g/dL (6.4-8.2)
[2019-03-11 06:50] LABS: BASOPHILS % (AUTO) 0.6 % (0.0-2.0); EOSINOPHILS % (AUTO) 0.1 % (0.0-6.0); HEMATOCRIT 37 % (39-51); HEMOGLOBIN 12.4 g/dL (13.5-17.5); LYMPHOCYTES # (AUTO) 0.4 /CMM (0.8-4.8); LYMPHOCYTES % (AUTO) 20.9 % (20.0-44.0); MEAN CORPUSCULAR HGB CONC 33 g/dl (31.0-36.0); MEAN CORPUSCULAR VOLUME 80 fL (80-96); MONOCYTES % (AUTO) 1.6 % (2.0-12.0); NEUTROPHILS # (AUTO) 1.3 /CMM (1.8-8.9); NEUTROPHILS % (AUTO) 76.8 % (43.0-81.0); PLATELET COUNT (AUTO) 575 /CMM (150-450); RED BLOOD CELL COUNT(AUTO) 4.66 MIL/uL (4.5-6.0)
--- NOTE | 2019-03-11 06:59 | NUR ---
CRITICAL LAB: RECEIVED CRITICAL LAB REPORT FROM RAMY/ELPIDIO, WBC 1.7, INFORMED JOSH HOSKINS CUT OFF SAW TENDER METAL AWAITING CALL BACK
[2019-03-11 07:01] LABS: WHITE BLOOD COUNT (AUTO) 1.7 K/uL (4.3-11.0)
[2019-03-11 08:00] VITALS: BP 93/69
--- NOTE | 2019-03-11 08:00 | NUR ---
HUY RN NOTE RECEIVED PATINT IN BED , ALERT ORIENTED X3 ,ON 2L NC AND HAVINF BREATHING TX BY RT , BED IN LOWEST AND LOCKED POSITION , CALL LIGHT WITHIN REACH. PLAN OF CARE DISCUSSED WITH PATIENT, WILL CONT TO MONITOR . RT HAND HL INATCT
[2019-03-11 08:39] LABS: BAND % (MANUAL) 1 % (0.0-5.0); LYMPHOCYTES % (MANUAL) 24 % (16-48); MONOCYTES % (MANUAL) 1 % (0-11.0); NEUTROPHILS % (MANUAL) 74 (42-76)
[2019-03-11] MEDS: PANTOPRAZOLE 40 MG TABLET.DR PO SCH (08:41)
[2019-03-11] MEDS: methylPREDNISolone SOD SUCC 40 MG/ML VIAL IV SCH ×3 (08:42→16:45)
[2019-03-11 08:50] LABS: ABG BASE EXCESS -2.1 mmol/L; ABG OXYGEN SATURATION 97.5 % (92.0-98.5); ABG PCO2 29.7 mmHg (35.0-45.0); ABG PH 7.462 (7.350-7.450); ABG PO2 102.9 mmHg (75.0-100.0); AaDO2 61.7 mmHg; COHb 0.2 % (0.5-1.5); MetHb 0.5 % (0.0-1.5); O2Hb 96.8 % (94.0-97.0); SITE, ABG Right Radial; VENT MODE, BG NASAL CANNULA
--- NOTE | 2019-03-11 10:13 | NUR ---
HUY RN NOTE REPORTED TO DR BERUMEN WBC 1.7 STATED THAT WILL CHECK PATIENT
--- NOTE | 2019-03-11 10:44 | NUR ---
HUY RN NOTE ABG DONE, DR ABEL AWARE OF RESULT NO NEW ORDER GIVEN AT THIS TIME
--- NOTE | 2019-03-11 11:57 | NUR ---
MS RN NOTE SEEN BT RT ON BREATHING TX AT THIS TIME, NO SOB NOTED ,CALL LIGHT WITHIN REACH , ALL NEEDS ATTENDED,WILL CONT TO MONITOR CLOSELY
--- NOTE | 2019-03-11 12:59 | NUR ---
MS RN NOTE SEEN BY PT, ABLE TO AMBULATE WELL WITH PT, NO SOB NOTED AT THIS TIME
--- NOTE | 2019-03-11 14:43 | NUR ---
MS RN NOTE CONSENT FO CT CHEST WITH CONTRAST OBTAINED , ALL NEEDS ATTENDED, KEEP CLEAN DRY ,WILL CONT TO MONITOR CLOSELY
--- NOTE | 2019-03-11 15:24 | NUR ---
Patient was recently diagnosed with pulmonary mass, likely malignancy per CT showing 2.8 x 2 x 1 x 1.3 cm spiculated mass; the patient was also diagnosed with abdominal mass- large heterogeneous abdominal mass; S/P biopsy, confirming CD10 positive for B-cell lymphoma done March 02, 2019. He was discharged yesterday and readmitted less than 24hours with c/o persistent shortness of breath at rest and on exertion. Patient lives locally with his mother who is also currently in the hospital as a patient.Patient was advised [facility] for oncology follow up and treatments. List of [facility] and [facility] provided to patient. Addendum: 03/11/19 at 1524 by DENNY PHELPS RN Amended: Links added.
[2019-03-11 16:00] VITALS: BP 106/72
[2019-03-11] MEDS ORDERED: CT SWABBABLE VALVE TRANS SET 1 EA INFUS.SET MC ONE (16:11)
[2019-03-11] MEDS ORDERED: IV NS 0.9% 250 ML IV ONE (16:11)
[2019-03-11] MEDS ORDERED: IOHEXOL-300 100 ML VIAL IV ONE (16:11)
--- NOTE | 2019-03-11 16:18 | NUR ---
MS RN NOTE DR FERRARA AT BEDSIDE AWARE THAT WBC 1.7 ,TAKEN TO CT CHEST
--- NOTE | 2019-03-11 18:26 | NUR ---
MS RN NOTE HAVING DINNER , ABLE TO FEED SELF ,ALL NEEDS ATTENDED .ABLE TO EAT 25% , NO SOB NOTED WILL CONT TO MONITOR CLOSELY
--- NOTE | 2019-03-11 19:32 | NUR ---
MS RN RECEIVE PT AWAKE, A/O X 3, RESPIRATIONS EVEN AND UNLABORED, NO SOB NOTED, NO DISTRESS, SAFETY MEASURES IN PLACE. WILL CONTINUE TO MONITOR.
[2019-03-11 19:57] VITALS: BP 107/72
[2019-03-11 20:00] VITALS: BP 107/72
[2019-03-12] MEDS: IPRATROPIUM NEB FS 0.5 MG/2.5 ML AMPUL.NEB NEB SCH ×6 (03:23→23:07)
[2019-03-12] MEDS: ALBUTEROL FS 2.5 MG/3 ML VIAL.NEB NEB SCH ×6 (03:23→23:07)
[2019-03-12 05:48] VITALS: BP 124/66
--- NOTE | 2019-03-12 06:07 | NUR ---
MS RN ASLEEP AND EASILY AWAKEN, RESPIRATION EVEN AND UNLABORED, ON 2LPM VIA NC 02 SAT AT 99%. STABLE, NEEDS ATTENDED AND ANTICIPATED, KEPT CLEAN AND DRY AND COMFORTABLE. NURSING CARE RENDERED, SAFETY MEASURES AT ALL TIMES. ENDORSE TO THE NEXT SHIFT.
[2019-03-12 07:31] LABS: BASOPHILS % (AUTO) 0.2 % (0.0-2.0); EOSINOPHILS % (AUTO) 0.1 % (0.0-6.0); HEMATOCRIT 32 % (39-51); HEMOGLOBIN 10.6 g/dL (13.5-17.5); LYMPHOCYTES # (AUTO) 0.7 /CMM (0.8-4.8); LYMPHOCYTES % (AUTO) 4.5 % (20.0-44.0); MEAN CORPUSCULAR HGB CONC 33 g/dl (31.0-36.0); MEAN CORPUSCULAR VOLUME 81 fL (80-96); MONOCYTES # (AUTO) 0.5 /CMM (0.1-1.30); NEUTROPHILS # (AUTO) 15.2 /CMM (1.8-8.9); NEUTROPHILS % (AUTO) 92.2 % (43.0-81.0); PLATELET COUNT (AUTO) 581 /CMM (150-450); RED BLOOD CELL COUNT(AUTO) 3.96 MIL/uL (4.5-6.0); WHITE BLOOD COUNT (AUTO) 16.5 K/uL (4.3-11.0)
--- NOTE | 2019-03-12 07:32 | NUR ---
RN OPENING NOTES PT WAS RECEIVED IN BED AT LOWEST AND LOCKED POSITION WITH SIDE RAILS UP 2, BREATHING EVEN AN UNLABORED ON RA, A/O X4, NO S/S OF ANY PAIN, CURRENTLY RECEIVING BREATHING TX, IV IS PATENT AND INTACT, SAFETY PRECAUTIONS IN PLACE, CALL LIGHT WITHIN REACH, WILL MONITOR PT ACCORDINGLY
[2019-03-12 07:45] LABS: CALCIUM, SERUM 9.5 mg/dL (8.5-10.1); MAGNESIUM 2.2 mg/dL (1.8-2.4); PHOSPHORUS 4.6 mg/dL (2.5-4.9); POTASSIUM 4.7 mmol/L (3.5-5.1)
[2019-03-12 08:00] VITALS: BP 96/72
[2019-03-12] MEDS: PANTOPRAZOLE 40 MG TABLET.DR PO SCH (08:01)
[2019-03-12] MEDS: methylPREDNISolone SOD SUCC 40 MG/ML VIAL IV SCH ×3 (08:01→16:02)
--- NOTE | 2019-03-12 15:00 | NUR ---
RN NOTE INFORMED BY TRUST OPERATIONS ASSISTANT THAT WILL BEING STAYING UNTIL FRIDAY DUE TO PT FRIENDS NOT BEING ABLE TO TAKE HIM DUE TO OBSERVING SABBAT AND THAT DR. ABEL WAS AWARE AND OKAY WITH IT. MADE AWARE AND PSYCH CONSULT REQUESTED. WILL MONITOR PT ACCORDINGLY.
[2019-03-12 16:00] VITALS: BP 98/62
--- NOTE | 2019-03-12 18:16 | NUR ---
RN CLOSING NOTES PT IN BED AT LOWEST AND LOCKED POSITION WITH SIDE RAILS UP 2, BREATHING EVEN AN UNLABORED ON RA, A/O X4 WITH NO S/S OF ANY PAIN OR DISTRESS, IV IS PATENT AND INTACT, AWAITING ACCEPTANCE TO ANOTHER FACILITY FOR HIGHER LEVEL OF CARE, ALL NEEDS ATTENDED TO, SAFETY PRECAUTIONS IN PLACE, CALL LIGHT WITHIN REACH, WILL ENDORSE TO PAD MACHINE OFFBEARER RN FOR DANUTA.
--- NOTE | 2019-03-12 18:22 | NUR ---
RN NOTE TALKED TO THE PATIENT AT THIS TIME REGARDING TREATMENT AND SUGGESTED CHEMOTHERAPY AND WHAT WOULD HAPPEN IF HE REFUSED, PT STILL REFUSED STATING HE WOULD SEEK A MORE HOLISTIC METHOD. HE ALSO REFUSED TO HAVE A BONE MARROW BIOPSY DONE. HE WAS INFORMED AND EDUCATED ABOUT TREATMENT AND ITS PURPOSE BUT HE STILL REFUSED. WILL MONITOR PT ACCORDINGLY.
--- NOTE | 2019-03-12 19:30 | NUR ---
MS1/RN PATIENT IS AWAKE, ALERT, ORIENTED, COMFORTABLE, NO C/O PAIN, NO DISTRESS NOTED, CALL LIGHT IN REACH. WILL MONITOR.
[2019-03-12 20:00] VITALS: BP 108/68
[2019-03-13] MEDS: ZOLPIDEM TARTRATE 5 MG TABLET PO PRN ×2 (01:40→23:43)
--- NOTE | 2019-03-13 01:43 | NUR ---
MS1/RN UNABLE TO SLEEP, AMBIEN WAS GIVEN ORDERED PER PATIENT'S REQUEST. WILL MONITOR.
--- NOTE | 2019-03-13 02:50 | NUR ---
MS1/RN PATIENT IS SLEEPING AT THIS TIME, APPEAR COMFORTABLE, BREATHING EVEN AND UNLABORED, CALL LIGHT IN REACH. WILL CONTINUE TO MONITOR.
[2019-03-13] MEDS: ALBUTEROL FS 2.5 MG/3 ML VIAL.NEB NEB SCH ×6 (03:09→23:22)
[2019-03-13] MEDS: IPRATROPIUM NEB FS 0.5 MG/2.5 ML AMPUL.NEB NEB SCH ×6 (03:09→23:22)
--- NOTE | 2019-03-13 03:09 | NUR ---
MS1/RN PER BRANDON FRIAS, PATIENT TOLD HER NOT TO DISTURB HIM WHEN HE IS SLEEPING.
--- NOTE | 2019-03-13 06:14 | NUR ---
MS1/RN PATIENT IS AWAKE, ALERT, COMFORTABLE, NO CHANGE IN CONDITION, ALL NEEDS ATTENDED AT THIS TIME, WILL CONTINUE TO MONITOR.
[2019-03-13 06:47] LABS: BASOPHILS % (AUTO) 0.2 % (0.0-2.0); HEMATOCRIT 28 % (39-51); HEMOGLOBIN 9.6 g/dL (13.5-17.5); LYMPHOCYTES # (AUTO) 0.8 /CMM (0.8-4.8); LYMPHOCYTES % (AUTO) 4.8 % (20.0-44.0); MEAN CORPUSCULAR HGB CONC 34 g/dl (31.0-36.0); MEAN CORPUSCULAR VOLUME 81 fL (80-96); MONOCYTES # (AUTO) 0.6 /CMM (0.1-1.30); MONOCYTES % (AUTO) 3.4 % (2.0-12.0); NEUTROPHILS # (AUTO) 15.8 /CMM (1.8-8.9); NEUTROPHILS % (AUTO) 91.6 % (43.0-81.0); PLATELET COUNT (AUTO) 508 /CMM (150-450); RED BLOOD CELL COUNT(AUTO) 3.52 MIL/uL (4.5-6.0); WHITE BLOOD COUNT (AUTO) 17.3 K/uL (4.3-11.0)
--- NOTE | 2019-03-13 07:30 | NUR ---
RN NOTE: RECEIVED PATIENT IN BED, AWAKE, ALERT AND VERBALLY RESPONSIVE. RESPIRATION EVEN AND UNLABORED SATURATING 97% IN ROOM AIR. DENIED ANY PAIN AT THIS TIME. HOB ELEVATED. PATIENT WAS WALKING INSIDE HIS ROOM. ON REVERSE ISOLATION. CALL LIGHT WITHIN REACH. NEEDS ANTICIPATED.
[2019-03-13 07:31] LABS: MAGNESIUM 2.1 mg/dL (1.8-2.4); PHOSPHORUS 3.6 mg/dL (2.5-4.9); POTASSIUM 4.3 mmol/L (3.5-5.1)
[2019-03-13 08:00] VITALS: BP 105/69
[2019-03-13] MEDS: methylPREDNISolone SOD SUCC 40 MG/ML VIAL IV SCH ×3 (08:25→17:01)
[2019-03-13] MEDS: PANTOPRAZOLE 40 MG TABLET.DR PO SCH (08:25)
--- NOTE | 2019-03-13 12:41 | NUR ---
RN NOTE: INFORMED DR. EDWARD REGARDING THE PATIENT'S WBC COUNT FOR THE PAST 2 3 DAYS AND THAT PATIENT WAS PLACED ON REVERSE ISOLATION. PER , OK TO DC THE REVERSE ISOLATION FOR THE PATIENT. ORDER, NOTED AND CARRIED OUT. PATIENT MADE AWARE.
--- NOTE | 2019-03-13 14:45 | NUR ---
RN NOTE: SEEN AND EVALUATED BY DR. VENTURA, PSYCHIATRIST AT THE BEDSIDE AND MD WAS INFORMED THAT HE WAS CONSULTED DUE TO DEPRESSION AND COMPETENCY PER DR. BEURMEN. PER DR. VENTURA, THE PATIENT HAS NO S/S OF DEPRESSION AT THIS TIME AND HE WILL NOT START ANY MEDICATION FOR THE PATIENT.
[2019-03-13 16:00] VITALS: BP 111/78
--- NOTE | 2019-03-13 19:10 | NUR ---
RN NOTE: BEDSIDE REPORT GIVEN TO PM SHIFT NURSE FOR CONTINUITY OF CARE. PATIENT REMAINED AWAKE, ALERT AND ABLE TO MAKE HIS NEEDS KNOWN. DENIED ANY PAIN OR DISCOMFORT.
[2019-03-13 20:00] VITALS: BP_SYST 120; BP_DIAS 80; BP_DIAS 81
--- NOTE | 2019-03-13 22:34 | NUR ---
RECEIVED REPORT FROM EMILY MAXWELL AM SHIFT FOR THIS PT. A/O X 4 AND SPEAKS CLEARLY IN FULL COMPLETE SENTENCES. ABLE TO VERBALIZE HIS NEEDS AND WANTS AND IS VERY SINCERE WITH THIS YOUTUBER. REMAINS QUIET AND CALM AND COOPERATIVE. CONTINUE WITH CONTINUITY OF CARE AND MONITOR AND OBSERVE PER POLICY AND PROCEDURE.
--- NOTE | 2019-03-13 22:40 | NUR ---
RECEIVED PT LYING SUPINE HOB ELEVATED 90 DEGREES WATCHING TELEVISION.
[2019-03-14] VITALS (7 sets, daily range): BP systolic 106–117; BP diastolic 75–78
[2019-03-14] MEDS: IPRATROPIUM NEB FS 0.5 MG/2.5 ML AMPUL.NEB NEB SCH ×6 (03:39→23:31)
[2019-03-14] MEDS: ALBUTEROL FS 2.5 MG/3 ML VIAL.NEB NEB SCH ×6 (03:39→23:31)
[2019-03-14 06:55] LABS: BASOPHILS % (AUTO) 0.1 % (0.0-2.0); HEMATOCRIT 31 % (39-51); HEMOGLOBIN 10.1 g/dL (13.5-17.5); LYMPHOCYTES # (AUTO) 0.8 /CMM (0.8-4.8); LYMPHOCYTES % (AUTO) 6.1 % (20.0-44.0); MEAN CORPUSCULAR HGB CONC 33 g/dl (31.0-36.0); MEAN CORPUSCULAR VOLUME 82 fL (80-96); MONOCYTES # (AUTO) 0.7 /CMM (0.1-1.30); MONOCYTES % (AUTO) 4.8 % (2.0-12.0); NEUTROPHILS # (AUTO) 12.3 /CMM (1.8-8.9); PLATELET COUNT (AUTO) 528 /CMM (150-450); RED BLOOD CELL COUNT(AUTO) 3.79 MIL/uL (4.5-6.0); WHITE BLOOD COUNT (AUTO) 13.8 K/uL (4.3-11.0)
--- NOTE | 2019-03-14 07:05 | NUR ---
MS RN OPENING NOTES RECEIVED PT LYING ON BED.ALERT/ORIENTED X4.ON ROOM AIR,TOLERATING WELL.NO SOB AND ACUTE DISTRESS NOTED.CAN AMBULATE WELL BY SELF.NO PAIN NOTED FOR NOW.IV LINE IS ON RIGHT HAND G20,SL.SITE IS CLEAN,DRY AND INTACT.NO INFILTRATION NOTED.SAFETY IS MAINTAINED AT ALL TIMES.BED IS IN LOW POSITION AND LOCKED.CALL LIGHT IS WITHIN REACH.WILL CONTINUE TO MONITOR THE PT CLOSELY.
[2019-03-14 07:07] LABS: CALCIUM, SERUM 9.3 mg/dL (8.5-10.1); CREATININE 0.9 mg/dL (0.6-1.3); MAGNESIUM 2.3 mg/dL (1.8-2.4); PHOSPHORUS 3.5 mg/dL (2.5-4.9); POTASSIUM 4.2 mmol/L (3.5-5.1)
[2019-03-14] MEDS: PANTOPRAZOLE 40 MG TABLET.DR PO SCH (07:45)
[2019-03-14] MEDS: methylPREDNISolone SOD SUCC 40 MG/ML VIAL IV SCH ×3 (08:39→16:05)
--- NOTE | 2019-03-14 12:19 | NUR ---
MS RN NOTES ,AIR SAMPLER SEEN AND EXAMINED THE PT,ORDERED PT EVAL IN AM FOR STRENGTHENING AND CONDITIONING THE PT PER PT REQUEST.NEW ORDERS NOTED AND CARRIED OUT.
--- NOTE | 2019-03-14 16:00 | NUR ---
MS RN NOTES NOTED WITH IV LINE ON RIGHT HAND G20 IS TAKEN OFF BY THE PT,NO BLEEDING,SWELLING AND INFILTRATION NOTED.INSERT A NEW IV LINE ON LEFT HAND G20,SITE IS CLEAN AND INTACT AND GOOD BLOOD RETURN.
--- NOTE | 2019-03-14 18:47 | NUR ---
MS RN CLOSING NOTES PT IS LYING ON BED,HAVING DINNER.ON ROOM AIR,TOLERATING WELL.NEW IV SITE ON LEFT HAND G20 IS IN PLACE.NO SIGNIFICANT CHANGES NOTED IN THE SHIFT.RESPIRATION IS EVEN AND NONLABORED.NO PAIN NOTED.ENDORSED TO VESSEL WELDER RN FOR DANUTA.
--- NOTE | 2019-03-14 19:05 | NUR ---
RN MS OPENING NOTES RECEIVED PATIENT IN ROOM AWAKE ALERT AND ORIENTED X4, RESPIRATIONS EVEN AND UNLABORED WITH EQUAL RISE AND FALL OF CHEST, DENIES ANY SOB AT THIS TIME, DENIES ANY PAIN OR DISCOMFORT AT THIS TIME, PATIENT IS AMBULATORY STEADY, AT TIMES UTILIZES PRN AT 2 L, IV SITE TO LEFT FA #20 SL INTACT AND PATENT, NO REDNESS, NO INFILTRATION PRESENT, ORIENTED TO STAFF AND CALL LIGHT AND KEPT WITHIN REACH, LOW BED AND LOCKED, SAFETY PRECAUTIONS IN PLACE, ALL NEEDS ATTENDED AT THIS TIME, WILL CONTINUE TO MONITOR THROUGHOUT SHIFT.
[2019-03-15] MEDS: ZOLPIDEM TARTRATE 5 MG TABLET PO PRN (00:48)
--- NOTE | 2019-03-15 00:48 | NUR ---
RN MS NOTES PATIENT UNABLE TO SLEEP REQUESTING FOR AMBIEN AMBIEN PRN GIVEN ORDERED, WILL CONTINUE TO MONITOR FOR EFFECTIVENESS.
[2019-03-15] MEDS: ALBUTEROL FS 2.5 MG/3 ML VIAL.NEB NEB SCH ×3 (04:09→11:09)
[2019-03-15] MEDS: IPRATROPIUM NEB FS 0.5 MG/2.5 ML AMPUL.NEB NEB SCH ×3 (04:09→11:09)
--- NOTE | 2019-03-15 06:25 | NUR ---
RN MS CLOSING NOTES PATIENT IN ROOM AWAKE ALERT AND ORIENTED X4, RESPIRATIONS EVEN AND UNLABORED WITH EQUAL RISE AND FALL OF CHEST, DENIES ANY SOB AT THIS TIME, DENIES ANY PAIN OR DISCOMFORT AT THIS TIME, PATIENT IS AMBULATORY STEADY, AT TIMES UTILIZES PRN 02 AT 2 L, IV SITE TO LEFT FA #20 SL INTACT AND PATENT, NO REDNESS, NO INFILTRATION PRESENT, CALL LIGHT KEPT WITHIN REACH ALL NEEDS WERE ATTENDED THROUGHOUT SHIFT NO CHANGES NOTES, LOW BED AND LOCKED, SAFETY PRECAUTIONS IN PLACE, WILL CONTINUE TO MONITOR AND ENDORSE TO NEXT SHIFT.
[2019-03-15 06:47] LABS: BASOPHILS % (AUTO) 0.2 % (0.0-2.0); EOSINOPHILS % (AUTO) 0.1 % (0.0-6.0); HEMATOCRIT 32 % (39-51); HEMOGLOBIN 10.5 g/dL (13.5-17.5); MEAN CORPUSCULAR HGB CONC 33 g/dl (31.0-36.0); MEAN CORPUSCULAR VOLUME 81 fL (80-96); MONOCYTES # (AUTO) 0.6 /CMM (0.1-1.30); MONOCYTES % (AUTO) 4.5 % (2.0-12.0); NEUTROPHILS # (AUTO) 12.1 /CMM (1.8-8.9); NEUTROPHILS % (AUTO) 88.2 % (43.0-81.0); PLATELET COUNT (AUTO) 523 /CMM (150-450); RED BLOOD CELL COUNT(AUTO) 3.93 MIL/uL (4.5-6.0); WHITE BLOOD COUNT (AUTO) 13.7 K/uL (4.3-11.0)
[2019-03-15 06:53] LABS: CALCIUM, SERUM 9.1 mg/dL (8.5-10.1); POTASSIUM 3.9 mmol/L (3.5-5.1)
--- NOTE | 2019-03-15 07:00 | NUR ---
MS RN OPENING NOTES RECEIVED PT LYING ON BED.ALERT/ORIENTED X4.ON ROOM AIR,TOLERATING WELL.NO SOB AND ACUTE DISTRESS NOTED.CAN AMBULATE WELL BY SELF.NO PAIN NOTED FOR NOW.IV LINE IS ON LEFT FA G20,SL.SITE IS CLEAN,DRY AND INTACT.NO INFILTRATION NOTED.SAFETY IS MAINTAINED AT ALL TIMES.BED IS IN LOW POSITION AND LOCKED.CALL LIGHT IS WITHIN REACH.WILL CONTINUE TO MONITOR THE PT CLOSELY.
[2019-03-15 08:00] VITALS: BP 119/84
[2019-03-15 08:06] LABS: LYMPHOCYTES % (MANUAL) 10 % (16-48); MONOCYTES % (MANUAL) 4 % (0-11.0); NEUTROPHILS % (MANUAL) 86 (42-76)
[2019-03-15] MEDS: PANTOPRAZOLE 40 MG TABLET.DR PO SCH (08:12)
[2019-03-15] MEDS: methylPREDNISolone SOD SUCC 40 MG/ML VIAL IV SCH (08:30)
[2019-03-15] MEDS ORDERED: PANT40TA2 PO (10:32)
[2019-03-15] MEDS ORDERED: ALBUT2 NEB (10:32)
[2019-03-15] MEDS ORDERED: IPRA0.2S9 NEB (10:32)
[2019-03-15] MEDS ORDERED: methylPREDNISolone SOD SUCC IV (10:32)
--- NOTE | 2019-03-15 12:00 | NUR ---
INDUSTRIAL DIAMOND POLISHER NOTES PT IS DISCHARGED TO [facility] FOR PLANNED PROCEDURE.REPORT GIVEN TO ALISSA SMITH IN THE HOSPITAL.PT IS ALERT/ORIENTED X4.ON ROOM AIR,SATURATING 99%.NO SOB AND ACUTE DISTRESS NOTED.VITAL SIGNS ARE CHECKED AND IT IS STABLE.SKIN ASSESSMENT IS DONE AND IT IS INTACT.ALL THE DISCHARGE INSTRUCTIONS AND FOLLOW UP APPOINTMENT HAS DISCUSSED WITH THE PT ,VERBALIZED UNDERSTOOD.IV LINE IS IN PLACE ON LEFT FA G20 FOR CONTINUOS IV PREDNISONE INJ TID.PICKED BY THE AMBULANCE.REPORT GIVEN TO EMS STAFF.
[2019-03-15] MEDS ORDERED: methylPREDNISolone SOD SUCC 40 MG/ML VIAL IV SCH (17:00)
[2019-03-20] MEDS ORDERED: PRED5TAB48 PO (16:12)
[2019-03-22] MEDS ORDERED: APIX5TAB PO (10:43)
== END 2019-03-15 12:00 | disposition short-term general hospital (02) | DRG 133 ==
LOC: ER 18:18 → TELE-TD 20:45 → MEDSG1 03-11 10:40
PROVIDERS: ADMIT Hospitalist; ATTEND Family Medicine
DX: J96.01 Acute respiratory failure with hypoxia (principal); C85.13 Unspecified B-cell lymphoma, intra-abdominal lymph nodes; C78.02 Secondary malignant neoplasm of left lung; D70.9 Neutropenia, unspecified; E44.1 Mild protein-calorie malnutrition; C78.01 Secondary malignant neoplasm of right lung; D50.9 Iron deficiency anemia, unspecified; J98.11 Atelectasis; D63.0 Anemia in neoplastic disease; J45.909 Unspecified asthma, uncomplicated; M85.80 Other specified disorders of bone density and structure, unspecified site; Z68.20 Body mass index [BMI] 20.0-20.9, adult; D47.3 Essential (hemorrhagic) thrombocythemia; F12.90 Cannabis use, unspecified, uncomplicated; F43.22 Adjustment disorder with anxiety
CPT/HCPCS: 36415; 36600; 71045-TC; 71260-TC; 80048-TC; 80053-TC; 80061-TC; 80076-TC; 82803-TC; 83735-TC; 83880; 84100-TC; 84484-TC; 85025-TC; 87081-TC; 94799-TC; 97116-TC; 97530-TC; G0378; J2920; J3475; J7050; Q9967

== ENCOUNTER 2019-03-24 21:30 | Emergency (ER) ==
[~2019-03-24] VITALS: Ht 170.2 cm; Wt 66.7 kg
[~2019-03-24 21:30] MED LIST changes: -ALBU8.5H8 INH; +APIX5TAB PO; -HYDR-4384 PO; +PANT40TA2 PO
--- NOTE | 2019-03-24 21:40 | NUR ---
PT BIBSELF C/O DIFFICULTY BREATHING X1 DAY. PT STATES "I HAVE TO CONCENTRATE ON MY BREATHING WHEN I'M TRYING TO GO TO SLEEP". PT 100% ON ROOM AIR. RESPIRATIONS EVEN AND UNLABORED. PT AAOX4. VITAL SIGNS STABLE. NO ACUTE DISTRESS NOTED AT THIS TIME. PLACED ON MONITOR, WILL CONTINUE TO MONITOR.
[2019-03-24 21:53] VITALS: BP 135/74
== END 2019-03-24 22:38 | disposition home or self-care (01) ==
LOC: ER 21:32
DX: R06.02 Shortness of breath (principal); Z86.711 Personal history of pulmonary embolism; Z85.118 Personal history of other malignant neoplasm of bronchus and lung; Z98.890 Other specified postprocedural states; Z88.5 Allergy status to narcotic agent; Z88.6 Allergy status to analgesic agent

== ENCOUNTER 2019-04-26 15:09 | Inpatient (IN) | payer MEDICAID ==
[~2019-04-26] VITALS: Ht 170.2 cm; Wt 63.5 kg
--- NOTE | 2019-04-26 15:25 | NUR ---
PT BIBFRIEND FOR WEAKNESS AND DECREASED APPETITE, PT AAOX4, -SOB, NAD NOTED, PENDING MD JAIN
[2019-04-26] MEDS ORDERED: IV NS 0.9% 1,000 ML BAG IV ONE (15:30)
[2019-04-26 16:01] LABS: ALBUMIN 2.6 g/dL (3.4-5.0); BILIRUBIN,DIRECT 0.1 mg/dL (0.0-0.2); BILIRUBIN,TOTAL 0.5 mg/dL (0.2-1.0); CALCIUM, SERUM 8.6 mg/dL (8.5-10.1); CREATININE 0.8 mg/dL (0.6-1.3); POTASSIUM 3.4 mmol/L (3.5-5.1); TOTAL PROTEIN, SERUM 6.7 g/dL (6.4-8.2)
[2019-04-26 16:13] LABS: BASOPHILS % (AUTO) 1.8 % (0.0-2.0); EOSINOPHILS % (AUTO) 2.6 % (0.0-6.0); HEMATOCRIT 38 % (39-51); HEMOGLOBIN 12.6 g/dL (13.5-17.5); LYMPHOCYTES # (AUTO) 0.8 /CMM (0.8-4.8); LYMPHOCYTES % (AUTO) 39.7 % (20.0-44.0); MEAN CORPUSCULAR HGB CONC 34 g/dl (31.0-36.0); MEAN CORPUSCULAR VOLUME 91 fL (80-96); MONOCYTES # (AUTO) 0.3 /CMM (0.1-1.30); MONOCYTES % (AUTO) 14.6 % (2.0-12.0); NEUTROPHILS # (AUTO) 0.8 /CMM (1.8-8.9); NEUTROPHILS % (AUTO) 41.3 % (43.0-81.0); PLATELET COUNT (AUTO) 746 /CMM (150-450); RED BLOOD CELL COUNT(AUTO) 4.15 MIL/uL (4.5-6.0)
[2019-04-26] MEDS ORDERED: CT SWABBABLE VALVE TRANS SET 1 EA INFUS.SET MC ONE (16:32)
[2019-04-26] MEDS ORDERED: IOHEXOL-350 100 ML VIAL IV ONE (16:32)
[2019-04-26] MEDS ORDERED: IV NS 0.9% 250 ML IV ONE (16:33)
[2019-04-26 16:54] LABS: APPEARANCE,URINE Clear (CLEAR); BILIRUBIN,URINE Negative (NEGATIVE); BLOOD, URINE Negative Ery/uL (NEGATIVE); COLOR,URINE Yellow (YELLOW); KETONES,URINE Negative (NEGATIVE); LEUKOCYTE ESTERASE ,URINE Negative (NEGATIVE); NITRITE, URINE Negative (NEGATIVE); PH,URINE 6.5 (5.0-8.0); PROTEIN,URINE Negative (NEGATIVE); UGLUCOSE Negative (NEGATIVE); UROBILINOGEN,URINE 0.2 EU/dL (0.2)
[2019-04-26 16:54] LABS: BAND % (MANUAL) 2 % (0.0-5.0); EOSINOPHILS % (MANUAL) 3 % (0-4); LYMPHOCYTES % (MANUAL) 49 % (16-48); MONOCYTES % (MANUAL) 10 % (0-11.0); NEUTROPHILS % (MANUAL) 36 (42-76)
--- NOTE | 2019-04-26 17:50 | NUR ---
JOSH THOMAS, JOSÉ MIGUEL CARRASCO HOE RUNNER CUSTOMER SPECIALIST
--- NOTE | 2019-04-26 17:52 | NUR ---
CALLED NURSING SUP. FOR MS BED
--- NOTE | 2019-04-26 18:09 | NUR ---
MS 201
--- NOTE | 2019-04-26 18:23 | NUR ---
[facility] REPAGED
--- NOTE | 2019-04-26 18:39 | NUR ---
REPORT GIVEN TO LUKE MAXWELL AT MS2 FOR DANUTA
--- NOTE | 2019-04-26 18:39 | NUR ---
[facility] REPAGED
[2019-04-26 19:52] VITALS: BP 87/61
--- NOTE | 2019-04-26 19:52 | NUR ---
MS RN OPENING NOTES: RECEIVED PT ON 5LPM VIA NC AND IS TOLERATING WELL. PT IS STATING HE IS HUNGRY. IV NOTED ON R AC AND IS PATENT AND INTACT. AWAITING FOR ADMITTING ORDERS. BED KEPT IN LOW, LOCKED POSITION, AND SIDE RAILS X 2UP. WILL CONTINUE TO MONITOR PT.
--- NOTE | 2019-04-26 20:40 | NUR ---
MS RN NOTES: NOTIFIED CONTINUITY MANAGER RYAN MUNIZ THAT PT'S BLOOD PRESSURE IS 87/61 HR 100 AND AWAITING FOR ADMITTING ORDERS.
[2019-04-26] MEDS: IV NS 0.9% 1,000 ML IV PRN (20:56)
[2019-04-26] MEDS ORDERED: ZOLPIDEM TARTRATE 5 MG TABLET PO PRN (21:00)
[2019-04-26] MEDS ORDERED: ONDANSETRON HCL/PF 4 MG/2 ML VIAL IVP PRN (21:00)
[2019-04-26] MEDS ORDERED: Z GUARD REMEDY 2 OZ OINT TP PRN (21:00)
[2019-04-26] MEDS ORDERED: HYDROCODONE/APAP 5/325MG 1 EACH TABLET PO PRN (21:00)
[2019-04-26] MEDS ORDERED: MAG HYDROX/AL HYDROX/SIMETH 30 ML UDC PO PRN (21:00)
[2019-04-26] MEDS ORDERED: MAGNESIUM HYDROXIDE 30 ML UDC PO PRN (21:00)
--- NOTE | 2019-04-26 23:23 | NUR ---
MS RN NOTES: SPOKE WITH PT AND CONFIRMED THAT HE'S TAKEN TYLENOL IN THE PAST AND HAS HAD NO ISSUES. UPDATED ALLERGIES LIST AND SPOKE WITH ELECTRICAL INSTALLATION SUPERVISOR PHARMACIST.
[2019-04-26] MEDS: ACETAMINOPHEN 325 MG TABLET PO PRN (23:27)
--- NOTE | 2019-04-26 23:31 | NUR ---
MS RN NOTES: PT COMPLAINING OF BACK PAIN. PT WAS ADMINISTERED TYLENOL 650MG PO. WILL CONTINUE TO MONITOR.
[2019-04-27 00:30] VITALS: BP 87/64
--- NOTE | 2019-04-27 00:47 | NUR ---
MS MAXWELL NOTES: ELIAS MUNIZ AT BEDSIDE. Addendum: 04/27/19 at 0150 by TOMI STEELE RN ELIAS MUNIZ AWARE ABOUT BP RUNNINGS IN HIGH 80S.
[2019-04-27] MEDS ORDERED: POTASSIUM CHLORIDE 20 MEQ TAB.PRT.SR PO ONE (01:30)
[2019-04-27 06:15] LABS: BASOPHILS % (AUTO) 2.2 % (0.0-2.0); EOSINOPHILS % (AUTO) 5.8 % (0.0-6.0); HEMATOCRIT 31 % (39-51); HEMOGLOBIN 10.4 g/dL (13.5-17.5); LYMPHOCYTES # (AUTO) 0.6 /CMM (0.8-4.8); LYMPHOCYTES % (AUTO) 44.7 % (20.0-44.0); MEAN CORPUSCULAR HGB CONC 33 g/dl (31.0-36.0); MEAN CORPUSCULAR VOLUME 92 fL (80-96); MONOCYTES # (AUTO) 0.2 /CMM (0.1-1.30); MONOCYTES % (AUTO) 14.8 % (2.0-12.0); NEUTROPHILS # (AUTO) 0.4 /CMM (1.8-8.9); NEUTROPHILS % (AUTO) 32.5 % (43.0-81.0); PLATELET COUNT (AUTO) 655 /CMM (150-450); RED BLOOD CELL COUNT(AUTO) 3.42 MIL/uL (4.5-6.0)
[2019-04-27 06:24] LABS: CALCIUM, SERUM 8.1 mg/dL (8.5-10.1); CREATININE 0.8 mg/dL (0.6-1.3); POTASSIUM 3.7 mmol/L (3.5-5.1)
[2019-04-27 06:37] LABS: WHITE BLOOD COUNT (AUTO) 1.3 K/uL (4.3-11.0)
--- NOTE | 2019-04-27 07:01 | NUR ---
MS RN CLOSING NOTES: ALL NEEDS WERE ATTENDED AND ANTICIPATED FOR. PT KEPT CLEAN, DRY, AND COMFORTABLE. PT ON 5LPM VIA NC AND IS TOLERATING WELL. PT RESTING COMFORTABLY. IV ON R AC BEING INFUSED WITH IV NS AT 100ML/HR. BED KEPT IN LOW, LOCKED POSITION, AND SIDE RAILS X 2UP. WILL ENDORSE TO AM NURSE FOR DANUTA.
[2019-04-27 07:04] LABS: BAND % (MANUAL) 2 % (0.0-5.0); EOSINOPHILS % (MANUAL) 6 % (0-4); LYMPHOCYTES % (MANUAL) 48 % (16-48); MONOCYTES % (MANUAL) 10 % (0-11.0); NEUTROPHILS % (MANUAL) 34 (42-76)
[2019-04-27] MEDS: IV NS 0.9% 1,000 ML IV PRN (07:46)
[2019-04-27 08:00] VITALS: BP 97/67
--- NOTE | 2019-04-27 08:00 | NUR ---
MS RN AM NOTES: PT ALERT AND ORIENTED X4. PT ON 5LPM VIA NC AND IS TOLERATING WELL.DENIES PAIN OR DISTRESS.USES URINAL. PT RESTING COMFORTABLY. IV ON R AC BEING INFUSED WITH IV NS AT 100ML/HR. BED KEPT IN LOW, LOCKED POSITION, AND SIDE RAILS X 2UP. CALL LIGHT PLACED WITHIN REACH.
[2019-04-27] MEDS: ACETAMINOPHEN 325 MG TABLET PO PRN (12:05)
--- NOTE | 2019-04-27 13:42 | NUR ---
Rechecked pt's O2 sat in room air and it was 98-99% and pt's HOB is flat. Denies discomfort or distress. Will O2 sat after 30 mins more and check pt's tolerance.
--- NOTE | 2019-04-27 15:09 | NUR ---
RECHECKED O2 SAT IN ROOM AIR AND IS 100% WITH NO S/S OF SOB OR DISTRESS.PT AMBULATES TO THE TOILET WITHOUT SOB.PT KEEPS INSISTING THAT HE WILL NEED O2 SAT.EXPLAINED TO THE PT THAT HE WON'T QUALIFY FOR O2 DUE TO HAVING A GOOD O2 SAT OF 100% IN ROOM AIR.CALLED PT'S FRIEND NOEL AND MADE AWARE THAT THE PT DOESN'T NEED O2 AT THIS TIME. NOEL STATED THAT HE WON'T CORONER THE PT AND THE PT NEEDS TO RIDE THE TAXI.
[2019-04-27 16:00] VITALS: BP 99/69
--- NOTE | 2019-04-27 17:55 | NUR ---
PT MAINTAINS TO BE 100%O2 SAT ON ROOM AIR AMBULATING BACK AND FORTH IN HIS ROOM. NO SOB OR DISTRESS NOTED.
--- NOTE | 2019-04-27 18:00 | NUR ---
DISCHARGED PT HOME WITH STABLE V/S VIA TAXI VOUCHER.PROVIDED PT'S WITH CLOTHES-SHIRT AND PANTS.PT HAS SHOES OF HIS OWN.PROVIDED HIS HEALTH INFO DISK REQUESTED BY PT.DISCHARGE INSTRUCTIONS,MED INSTRUCTIONS AND REINFORCED TO FOLLOW UP WITH HIS PRIMARY DOCTOR AND ONCOLOGIST IN [place].PT ATE DINNER PRIOR TO DISCHARGE.DENIES ANY PAIN OR DISTRESS.
== END 2019-04-27 18:00 | disposition home or self-care (01) | DRG 691 ==
LOC: ER 15:09 → MEDSG2 18:11
PROVIDERS: ADMIT Nurse Practitioner Acute Care
DX: C85.13 Unspecified B-cell lymphoma, intra-abdominal lymph nodes (principal); J96.01 Acute respiratory failure with hypoxia; E44.0 Moderate protein-calorie malnutrition; C78.00 Secondary malignant neoplasm of unspecified lung; E87.1 Hypo-osmolality and hyponatremia; E44.1 Mild protein-calorie malnutrition; Z86.711 Personal history of pulmonary embolism; Z85.118 Personal history of other malignant neoplasm of bronchus and lung; Z88.6 Allergy status to analgesic agent; Z88.5 Allergy status to narcotic agent; J98.09 Other diseases of bronchus, not elsewhere classified; K80.20 Calculus of gallbladder without cholecystitis without obstruction; E87.6 Hypokalemia; M85.80 Other specified disorders of bone density and structure, unspecified site; F12.929 Cannabis use, unspecified with intoxication, unspecified; D50.9 Iron deficiency anemia, unspecified; D72.819 Decreased white blood cell count, unspecified; D47.3 Essential (hemorrhagic) thrombocythemia; Z91.19 Patient's noncompliance with other medical treatment and regimen; J45.909 Unspecified asthma, uncomplicated
CPT/HCPCS: 36415; 71045-TC; 80048-TC; 80061-TC; 80076-TC; 81000-TC; 83605-TC; 83735-TC; 84100-TC; 84484-TC; 85025-TC; 85730-TC; 87040-TC; 87081-TC; 87086-TC; G0378; J7030; J7050; Q9967

== ENCOUNTER 2019-05-09 13:15 | Emergency (ER) | payer MEDICAID ==
[~2019-05-09] VITALS: Ht 170.2 cm; Wt 61.7 kg
--- NOTE | 2019-05-09 13:26 | NUR ---
PT GINA FROM HOME TO ER BED 01. PT IS C/O WORSENING SOB FOR THE PAST 3 DAYS. HX OF LUNG CA. GOWNED AND PLACED ON MONITOR. AWAITING MD JAIN.
--- NOTE | 2019-05-09 13:28 | NUR ---
DR BRANDON AT BEDSIDE FOR EVAL.
[2019-05-09] MEDS ORDERED: IV NS 0.9% 1,000 ML BAG IV ONE ×2 (14:00)
[2019-05-09 14:05] LABS: BASOPHILS # (AUTO) 0.1 /CMM (0.0-0.2); BASOPHILS % (AUTO) 1.2 % (0.0-2.0); EOSINOPHILS % (AUTO) 0.7 % (0.0-6.0); HEMATOCRIT 35 % (39-51); LYMPHOCYTES # (AUTO) 1.3 /CMM (0.8-4.8); MEAN CORPUSCULAR HGB CONC 34 g/dl (31.0-36.0); MEAN CORPUSCULAR VOLUME 87 fL (80-96); MONOCYTES # (AUTO) 0.6 /CMM (0.1-1.30); MONOCYTES % (AUTO) 5.9 % (2.0-12.0); NEUTROPHILS # (AUTO) 8.4 /CMM (1.8-8.9); NEUTROPHILS % (AUTO) 80.2 % (43.0-81.0); RED BLOOD CELL COUNT(AUTO) 4.03 MIL/uL (4.5-6.0); WHITE BLOOD COUNT (AUTO) 10.5 K/uL (4.3-11.0)
--- NOTE | 2019-05-09 14:05 | NUR ---
RADIOLOGY AT BEDSIDE FOR CHEST XRAY.
[2019-05-09 14:08] LABS: ABG BASE EXCESS 1.7 mmol/L; ABG OXYGEN SATURATION 97.1 % (92.0-98.5); ABG PCO2 31.2 mmHg (35.0-45.0); ABG PH 7.506 (7.350-7.450); ABG PO2 93.4 mmHg (75.0-100.0); AaDO2 69.4 mmHg; COHb 0.1 % (0.5-1.5); MetHb 0.5 % (0.0-1.5); O2Hb 96.5 % (94.0-97.0); SITE, ABG Left Brachial; VENT MODE, BG NASAL CANNULA
[2019-05-09 14:10] LABS: PLATELET COUNT (AUTO) 918 /CMM (150-450)
[2019-05-09 14:32] LABS: ALANINE AMINOTRANSFERASE 12 U/L (12-78); ALBUMIN 2.2 g/dL (3.4-5.0); ALKALINE PHOSPHATASE 155 U/L (46-116); ASPARTATE AMINOTRANSFERASE 42 U/L (15-37); B-TYPE NATRIURETIC PEPTIDE 99 PG/ML (0-125); BILIRUBIN,DIRECT 0.1 mg/dL (0.0-0.2); BILIRUBIN,TOTAL 0.3 mg/dL (0.2-1.0); CARBON DIOXIDE 26 mmol/L (21-32); CHLORIDE 97 mmol/L (98-107); CREATININE 0.7 mg/dL (0.6-1.3); GLUCOSE 94 mg/dL (74-106); SODIUM SERUM 133 mmol/L (136-145); UREA NITROGEN, BLOOD 2 mg/dL (7-18)
[2019-05-09 14:33] LABS: POTASSIUM 2.2 mmol/L (3.5-5.1)
[2019-05-09] MEDS ORDERED: POTASSIUM CL. PREMIX PERIPHER. 50 ML IV SCH (15:00)
[2019-05-09] MEDS ORDERED: POTASSIUM CHLORIDE 20 MEQ TAB.PRT.SR PO ONE ×2 (15:00→15:27)
[2019-05-09] MEDS ORDERED: POTASSIUM CL. PREMIX PERIPHER. 200 ML ONE (15:19)
[2019-05-09 16:10] LABS: BAND % (MANUAL) 1 % (0.0-5.0); LYMPHOCYTES % (MANUAL) 14 % (16-48); MONOCYTES % (MANUAL) 3 % (0-11.0); NEUTROPHILS % (MANUAL) 82 (42-76)
--- NOTE | 2019-05-09 17:01 | NUR ---
PT NOW C/O LOWER BACK PAIN. REQUESTING PAIN MEDICATION. ERMD AWARE. NO NEW ORDERS AT THIS TIME.
[2019-05-09] MEDS ORDERED: ACETAMINOPHEN 325 MG TABLET ONE (18:11)
[2019-05-09] MEDS: ACETAMINOPHEN 650 MG/20.3 ML UDC PO ONE (18:14)
--- NOTE | 2019-05-09 19:13 | NUR ---
REPORT GIVEN TO MIKE VAZQUEZ RN FOR DANUTA.
--- NOTE | 2019-05-09 19:40 | NUR ---
CALLED [facility] FOR TRANSPORTATION. ETA [phone], TRIP NUMBER [id number]
--- NOTE | 2019-05-09 20:52 | NUR ---
REPORT GIVEN TO EMT FOR PT TRANSFER TO HOME. Patient discharged to home in stable condition. Written and verbal after care instructions given. Patient verbalizes understanding of instruction.
[2019-05-09 20:54] VITALS: BP 100/67
[2019-05-10] MEDS ORDERED: ACETAMINOPHEN 325 MG TABLET ONE (00:52)
== END 2019-05-09 20:55 | disposition home or self-care (01) ==
LOC: ER 13:19
DX: E87.6 Hypokalemia (principal); C78.01 Secondary malignant neoplasm of right lung; C78.02 Secondary malignant neoplasm of left lung; C82.90 Follicular lymphoma, unspecified, unspecified site; C79.2 Secondary malignant neoplasm of skin; J96.01 Acute respiratory failure with hypoxia; E87.1 Hypo-osmolality and hyponatremia; F12.90 Cannabis use, unspecified, uncomplicated; E44.0 Moderate protein-calorie malnutrition; D50.9 Iron deficiency anemia, unspecified; D72.819 Decreased white blood cell count, unspecified; J45.909 Unspecified asthma, uncomplicated; R00.0 Tachycardia, unspecified; Z91.19 Patient's noncompliance with other medical treatment and regimen; Z98.890 Other specified postprocedural states; Z88.5 Allergy status to narcotic agent; Z85.118 Personal history of other malignant neoplasm of bronchus and lung
CPT/HCPCS: 36415; 36600; 71045; 80048; 80076; 83735; 83880; 84132; 84484; 85025; 93005; 96365; 96366; 99284; J3480; J7030 ×2

== ENCOUNTER 2019-05-09 21:27 | Emergency (ER) | payer MEDICAID ==
[~2019-05-09] VITALS: Ht 170.2 cm; Wt 61.7 kg
--- NOTE | 2019-05-09 21:30 | NUR ---
PT BIBPA FROM HOME C/O GEN WEAKNESS AND SOB, RECENTLY DX FROM [facility] ER, PT IS AAOX3, NOT IN RESPIRATORY DISTRESS, HOOKED TO MONITOR, KEPT RESTED AND COMFORTABLE, WILL CONTINUE TO MONITOR.
--- NOTE | 2019-05-09 21:32 | NUR ---
AMBULANCE IS BACK WITH THE PATIENT,NEIGHBOR COMPLAINT TO EMT'S THAT THE PT IS UNABLE TO TAKE CARE OF HIM SELF AND CAN AMBULATE SO HE CANT STAY IN HIS HOUSE.
--- NOTE | 2019-05-09 21:42 | NUR ---
PT WILL WAIT FOR THE WAFER FABRICATOR.
[2019-05-09] MEDS ORDERED: IOHEXOL-300 100 ML VIAL IV ONE (22:54)
[2019-05-09] MEDS ORDERED: CT SWABBABLE VALVE TRANS SET 1 EA INFUS.SET MC ONE (22:54)
[2019-05-09] MEDS ORDERED: IV NS 0.9% 250 ML IV ONE (22:54)
--- NOTE | 2019-05-09 22:56 | NUR ---
SAIDA [phone] FAMILY MEMBER
--- NOTE | 2019-05-09 22:57 | NUR ---
PT IS WHEELED TO CT SCAN VIA [facility].
--- NOTE | 2019-05-10 00:53 | NUR ---
PT COMPLAINS OF ACHING CHEST AND BACK PAIN 02/10. REQUESTING TYLENOL. MD MADE AWARE. ORDER RECEIVED TO TYLENOL 650MG X1
[2019-05-10] MEDS ORDERED: ACETAMINOPHEN 325 MG TABLET PO ONE (01:00)
--- NOTE | 2019-05-10 02:14 | NUR ---
PT IS MEDICALLY DISCHARGED, STILL AWAITING BAGEL MAKER FOR PLACEMENT.
--- NOTE | 2019-05-10 03:30 | NUR ---
PT AMBULATORY WITH STEADY GAIT TO RESTROOM
--- NOTE | 2019-05-10 07:20 | NUR ---
BREAKFAST PROVIDED FOR PATIENT AT BEDSIDE
--- NOTE | 2019-05-10 09:35 | NUR ---
PATIENT FRIEND AT BEDSIDE TO TAKE PATIENT HOME. MD MADE AWARE. PATIENT REFUSE RESOURCE FOR HELP
--- NOTE | 2019-05-10 09:42 | NUR ---
Patient discharged to home in stable condition. Written and verbal after care instructions given. Patient verbalizes understanding of instruction. IV removed. Catheter intact and site benign. Pressure and 4x4 applied to site. No bleeding noted.
[2019-05-10 09:49] VITALS: BP 100/75
== END 2019-05-10 09:50 | disposition home or self-care (01) ==
LOC: ER 21:29
DX: R07.89 Other chest pain (principal); R06.02 Shortness of breath; R53.1 Weakness; E87.6 Hypokalemia; H53.2 Diplopia; Z85.118 Personal history of other malignant neoplasm of bronchus and lung; Z98.890 Other specified postprocedural states; Z88.5 Allergy status to narcotic agent; W01.0XXA Fall on same level from slipping, tripping and stumbling without subsequent striking against object, initial encounter; Y93.89 Activity, other specified; Y92.89 Other specified places as the place of occurrence of the external cause; Y99.8 Other external cause status
CPT/HCPCS: 70460; 71260; 74177; 99284; J7050; Q9967

== ENCOUNTER 2019-08-26 22:49 | Emergency (ER) | payer MEDICAID ==
[~2019-08-26] VITALS: Ht 170.2 cm; Wt 59.4 kg
--- NOTE | 2019-08-26 22:55 | NUR ---
PT BIB EMS FROM HOME C/O ALTERED, COUGH AND CONGESTION. PT ABLE TO ANSWER QUESTIONS. DENIES ETOH. DENIES DRUG USE. PT ON MONITOR IN BED 3. WILL CONTINUE TO MONITOR.
--- NOTE | 2019-08-26 22:58 | NUR ---
TECH AT BEDSIDE FOR EKG
--- NOTE | 2019-08-27 00:13 | NUR ---
PHLEB AT BEDSIDE FOR LAB DRAW
[2019-08-27] MEDS ORDERED: IPRATROPIUM NEB FS 0.5 MG/2.5 ML AMPUL.NEB ONE (00:22)
[2019-08-27] MEDS ORDERED: ALBUTEROL FS 2.5 MG/3 ML VIAL.NEB ONE (00:22)
--- NOTE | 2019-08-27 00:22 | NUR ---
RADIOLOGY AT BEDSIDE FOR XRAY
--- NOTE | 2019-08-27 00:26 | NUR ---
RT AT BEDSIDE FOR BREATHING TREATMENT
[2019-08-27 00:29] LABS: BASOPHILS # (AUTO) 0.1 /CMM (0.0-0.2); HEMATOCRIT 34 % (39-51); LYMPHOCYTES # (AUTO) 0.4 /CMM (0.8-4.8); NEUTROPHILS # (AUTO) 1.8 /CMM (1.8-8.9); WHITE BLOOD COUNT (AUTO) 2.7 K/uL (4.3-11.0)
[2019-08-27] MEDS ORDERED: IPRATROPIUM NEB FS 0.5 MG/2.5 ML AMPUL.NEB NEB ONE ×2 (00:30→02:00)
[2019-08-27] MEDS ORDERED: methylPREDNISolone SOD SUCC 125 MG/2ML VIAL IV ONE (00:30)
[2019-08-27] MEDS ORDERED: ALBUTEROL FS 2.5 MG/3 ML VIAL.NEB CONTNEB ONE (00:30)
[2019-08-27 00:33] LABS: BASOPHILS % (AUTO) 3.8 % (0.0-2.0); EOSINOPHILS % (AUTO) 2.4 % (0.0-6.0); HEMOGLOBIN 11.3 g/dL (13.5-17.5); MEAN CORPUSCULAR HGB CONC 33 g/dl (31.0-36.0); MEAN CORPUSCULAR VOLUME 90 fL (80-96); MONOCYTES # (AUTO) 0.4 /CMM (0.1-1.30); MONOCYTES % (AUTO) 13.9 % (2.0-12.0); NEUTROPHILS % (AUTO) 64.9 % (43.0-81.0); PLATELET COUNT (AUTO) 650 /CMM (150-450); RED BLOOD CELL COUNT(AUTO) 3.79 MIL/uL (4.5-6.0)
[2019-08-27 00:50] LABS: CALCIUM, SERUM 8.9 mg/dL (8.5-10.1); CARBON DIOXIDE 26 mmol/L (21-32); CHLORIDE 96 mmol/L (98-107); GLUCOSE 88 mg/dL (74-106); SODIUM SERUM 133 mmol/L (136-145); UREA NITROGEN, BLOOD 6 mg/dL (7-18)
[2019-08-27] MEDS ORDERED: methylPREDNISolone SOD SUCC 125 MG/2ML VIAL ONE (00:54)
[2019-08-27 00:58] LABS: B-TYPE NATRIURETIC PEPTIDE 263 PG/ML (0-125)
[2019-08-27 01:32] LABS: EOSINOPHILS % (MANUAL) 1 % (0-4); LYMPHOCYTES % (MANUAL) 14 % (16-48); MONOCYTES % (MANUAL) 15 % (0-11.0); NEUTROPHILS % (MANUAL) 70 (42-76)
[2019-08-27] MEDS ORDERED: ALBUTEROL FS 2.5 MG/3 ML VIAL.NEB NEB ONE (02:00)
--- NOTE | 2019-08-27 02:37 | NUR ---
CALLED FOR AMBULANCE. ETA 1 HR.
[2019-08-27 03:14] VITALS: BP 118/93
--- NOTE | 2019-08-27 04:22 | NUR ---
[facility] ETA [id number]
--- NOTE | 2019-08-27 06:27 | NUR ---
IV removed. Catheter intact and site benign. Pressure and 4x4 applied to site. No bleeding noted.Patient discharged to home in stable condition. Written and verbal after care instructions given. Patient verbalizes understanding of instruction.
== END 2019-08-27 06:28 | disposition home or self-care (01) ==
LOC: ER 22:51
DX: R06.02 Shortness of breath (principal); R91.8 Other nonspecific abnormal finding of lung field; Z98.890 Other specified postprocedural states; Z88.6 Allergy status to analgesic agent; Z85.118 Personal history of other malignant neoplasm of bronchus and lung
CPT/HCPCS: 36415; 71045; 80048; 83880; 84484; 85025; 93005; 94640; 96374; 99284; J2930